=== PATIENT | female | born 2000 | race African-American/Black ===

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

== ENCOUNTER 2021-11-28 21:22 | Emergency (ER) | payer BC ==
--- OUTSIDE RECORDS SUMMARY | 2021-11-28 21:32 | XMS REPORT | Continuity of Care Document ---
:2000 Author Organization [facility] t Address [address] [place] [address] Support Name Relationship Address Phone CLAYTON CARRASQUILLO, MATTHEW Emergency Provider [address] [place] [address] PHYSICIAN, NO Primary Care Physician Unavailable Unavailab PEPE [place] [address] [place] [address] BRADLY CARRASQUILLO, VALERIA Emergency Provider [address] [place] [address] PEPE ECHEVARRIA Next of Kin [address] [place] [address] TANYA CARRASQUILLO, SEVERO Araujo Emergency Provider [address] [facility] [id number] [phone] [place] [address] JUNIOR CARRASQUILLO, GAVIN Emergency Provider [address] [facility] [phone] [place] [address] PEPE ECHEVARRIA Next of Kin [address] [place] [address] CYNTHIA CARRASQUILLO, EMIR Emergency Provider [address] [phone] [place] [address] DAVID REYES Emergency Provider [address] [phone] [place] [address] MD ALISON HELMS MD Emergency Provider [address] [place] [address] PEPE ECHEVARRIA Next of Kin [address] [phone] [place] [address] PEPE ECHEVARRIA Family Member [address] [place] [address] MD ORI FUCHS Emergency Provider Unavailable Unavailable MD VALERIA ABDULLAHI Emergency Provider [address] [place] [address] DO LORENA WARD Emergency Provider [address] [facility] [email or web address] [address] LAWRENCE KABA MD [place] Emergency Provider [address] [email or web address] [address] MD ALEC MICHAEL Admitting Provider [address] [place] [address] MD REGINA YARBROUGH Emergency Provider [address] [place] [address] MD MYLES FORD Emergency Provider [address] [phone] [place] [address] MD NICOLE [facility] Primary Care Physician [address] [facility] [place] [address] BRENNAJOYCE HAMPTONLEROY Vera Unavailable Yumi Echevarria Mother [address] [phone] [place] [address] Airam, Thanh Significant Other [address] [phone] [place] [address] Care Team Providers Name Role Phone Elizabeth Izaguirre Primary Care Physician LANG YOUNGBLOOD Attending Clinician Unavailable Elizabeth Izaguirre Attending Clinician Nurse, [facility] Attending Clinician Unavailable Shaina Owen RN Attending Clinician Unavailable Only, Alex To Test Attending Clinician Unavailable Gretchen Mcgrath MD Attending Clinician GRETCHEN MCGRATH Attending Clinician Unavailable Daysi Mancera RN Attending Clinician Unavailable Unknown, Attending Attending Clinician Unavailable JAC CARDOSO Attending Clinician Unavailable Jac Herrmann Attending Clinician Doctor Unassigned, [place] Attending Clinician Unavailable Lilli Sandoval MD Attending Clinician Fredi Attending Clinician Unavailable BYRON Attending Clinician Unavailable Jeffrey_Gavin Attending Clinician Unavailable PARVIN Attending Clinician Unavailable RENETTA Attending Clinician Unavailable Nicole_Nacho Admitting Clinician Unavailable BYRON Admitting Clinician Unavailable G_Gavin Admitting Clinician Unavailable JUWAN_Marnie Admitting Clinician Unavailable RENETTA Admitting Clinician Unavailable Payers Payer Name Policy Type Policy Number Effective Date Expiration Date S gladis PARRA BCBS BLUE [id number] 2021 ADVANTAGE H[place] 00:00:00 [place] [id number] 2020 2021 [place]VANTAGE (HMO) 00:00:00 00:00:[place] [id number] Problems Condition Condition Condition Status Onset Resolution Last Treating Co mments Source Name Details Category Date Date Treatment Clinician Date Neck Neck Disease Active Univers swelling swelling 6-03 ity of 00:00: [place] 00 Medical Branch Lymphadeno Lymphadeno Disease Active U nivers margaret of margaret of 6-03 ity of head and head and 00:00: [place] neck neck 00 Medical Branch Elevated Elevated Disease Active Unive rs liver liver 6-03 ity of enzymes enzymes 00:00: [place] 00 Medical Branch Anaphylact Anaphylact Disease Active U nivers ic ic 5-18 ity of reaction reaction 00:00: [place] due to due to 00 Medical food food Branch HSV HSV Disease Active Overview: Univer s (herpes (herpes 5-17 Formattin ity o f simplex simplex 00:00: g of this [place] virus) virus) 00 note Medical infection infection might be Br anch different from the original. Positive lab results hsv 1, 02/2021 see scanned records Cervical Cervical Disease Active Overview: Un jackson Papanicola Papanicola 5-17 Formattin ity of ou smear ou smear 00:00: g of this Parviz as negative negative 00 note Medica l within within might be Branch last 12 last 12 different months months from the original. NIL pap 02/2021 see scanned records Other Other Disease Active Univers general general 5-09 ity of counseling [place] and advice and advice 00 Me dical for for Branch contracept contracept lani lani management management Obesity Obesity Disease Active Univers (BMI (BMI - ity of 30-39.9) 30-39.9) 00:00: [address] Branch Generalize Generalize Problem Active [place] anxiety d Anxiety 4-20 da disorder Disorder 00:00: Medica l 00 Group Cyst of Cyst of Problem Active [place] right Right 4-20 da Bartholin' Bartholin' 00:00: Me dical s gland s [place] 00 Group duct Duct Uses Uses Disease Active [facility] contact contact 12-13 ity of lenses lenses 00:00: Medical Branch Acne Acne Disease Active Univers 11-25 ity of 00:00: Medical Branch Decreased Decreased Disease Active Uni vers vision vision 11-25 ity of 00:00: Medical [place] Migraines Migraines Disease Active Uni vers 11-17 ity of 00:00: [facility] Allergies, Adverse Reactions, Alerts Allergy Allergy Status Severity Reaction(s) Onset Inactive Treating Comm ents Source Name Type Date Date Clinician NO KNOWN Drug Active [facility] ALLERGIE Class ity of S [facility] Social History Social Habit Start Date Stop Date Quantity Comments Source Exposure to 2021-11-07 2021-11-17 Yes [facility] SARS-CoV-2 00:00:00 12:44:00 [facility] (event) [place] Alcohol intake 2021-11-17 2021-11-17 Ex-drinker [facility] 00:00:00 00:00:00 (finding) [facility] Tobacco use and 2021-11-07 2021-11-07 Smokeless tobacco Un iversity of exposure 00:00:00 00:00:00 non-user [facility] Tobacco Comment 2021-11-07 2021-11-07 na Universit y of 00:00:00 00:00:00 [facility] Sex Assigned At [birth year] Universit y of 00:00:00 00:00:00 [facility] Smoking Status Start Date Stop Date Source Never smoked tobacco [facility] Medications Ordered Filled Start Stop Current Ordering Indication Dosage Frequency Signature Comments Components Source Medication Medication Date Date Medication? Clinician (SIG) Name Name fluconazole 2021- Yes [id number] 150mg Take 1 Univers (DIFLUCAN) 11-17 tablet by ity of 150 mg 00:00: 04:59 mouth [place] tablet 00 :00 every 72 Medical (seventy-t Branch wo) hours for 3 doses. fluconazole 2021- Yes [id number] 150mg Take 1 Univers (DIFLUCAN) 11-17 tablet by ity of 150 mg 00:00: 04:59 mouth [place] tablet 00 :00 every 72 Medical ([facility] Branch wo) hours for 3 doses. fluconazole 2021- Yes [id number] 150mg Take 1 Univers (DIFLUCAN) 11-17 tablet by ity of 150 mg 00:00: 04:59 mouth [place] tablet 00 :00 [facility] 72 [facility] for 3 doses. fluconazole 2021- Yes [id number] 150mg Take 1 Univers (DIFLUCAN) 11-17 tablet by ity of 150 mg 00:00: 04:59 mouth [place] tablet 00 :00 every 72 [facility] for 3 doses. fluconazole 2021- Yes [id number] 150mg Take 1 Univers (DIFLUCAN) 11-17 tablet by ity of 150 mg 00:00: 04:59 mouth [place] tablet 00 :00 every 72 [facility] hours for 3 doses. metroNIDAZO Yes [id number] 500mg Take 1 Univers LE (FLAGYL) 7-24 tablet by ity of 500 mg 00:00: mouth [place] tablet 00 every 12 Medical (twelve) Branch hours. metroNIDAZO Yes [id number] 500mg Take 1 Univers LE (FLAGYL) 7-24 tablet by ity of 500 mg 00:00: mouth [place] tablet 00 every 12 Medical (twelve) Branch hours. metroNIDAZO 0 Yes [id number] 500mg Take 1 Univers LE (FLAGYL) 7-24 tablet by ity of 500 mg 00:00: mouth [place] tablet 00 every 12 Medical (twelve) Branch hours. metroNIDAZO Yes [id number] 500mg Take 1 Univers LE (FLAGYL) 7-24 tablet by ity of 500 mg 00:00: mouth [place] tablet 00 every 12 Medical (twelve) Branch hours. metroNIDAZO Yes [id number] 500mg Take 1 Univers LE (FLAGYL) 7-24 tablet by ity of 500 mg 00:00: mouth [place] tablet 00 every 12 Medical (twelve) Branch hours. metroNIDAZO Yes [id number] 500mg Take 1 Univers LE (FLAGYL) 7-24 tablet by ity of 500 mg 00:00: mouth [place] tablet 00 every 12 Medical (twelve) Branch hours. metroNIDAZO Yes [id number] 500mg Take 1 Univers LE (FLAGYL) 7-24 tablet by ity of 500 mg 00:00: mouth [place] tablet 00 every 12 Medical (twelve) Branch hours. metroNIDAZO Yes [id number] 500mg Take 1 Univers LE (FLAGYL) 7-24 tablet by ity of 500 mg 00:00: mouth [place] tablet 00 every 12 Medical (twelve) Branch hours. metroNIDAZO 2021- Yes [id number] 500mg Take 1 Univers LE (FLAGYL) 7-23 07-31 tablet by it y of 500 mg 00:00: 04:59 mouth [place] tablet 00 :00 every 12 Medical (twelve) Branch hours for 7 days. metroNIDAZO 2021- Yes [id number] 500mg Take 1 Univers LE (FLAGYL) 7-23 07-31 tablet by it y of 500 mg 00:00: 04:59 mouth [place] tablet 00 :00 every 12 Medical (twelve) Branch hours for 7 days. metroNIDAZO 2021- No [id number] 500mg Take 1 Univers LE (FLAGYL) 7-23 07-24 tablet by it y of 500 mg 00:00: 00:00 mouth [place] tablet 00 :00 every 12 Medical (twelve) Branch hours for 7 days. ibuprofen Yes ibuprofen Uni vers 800 mg 7-22 800 mg ity of tablet 11:04: tablet [address] ibuprofen Yes ibuprofen Uni vers 800 mg 7-22 800 mg ity of tablet 11:04: tablet [address] ibuprofen Yes ibuprofen Uni vers 800 mg 7-22 800 mg ity of tablet 11:04: tablet [address] ibuprofen 2022-0 Yes ibuprofen Uni vers 800 mg 7-22 800 mg ity of tablet 11:04: tablet [address] ibuprofen 2021-0 Yes ibuprofen Uni vers 800 mg 7-22 800 mg ity of tablet 11:04: tablet [address] ibuprofen 2021-0 Yes ibuprofen Uni vers 800 mg 7-22 800 mg ity of tablet 11:04: tablet [address] ibuprofen 2021-0 Yes ibuprofen Uni vers 800 mg 7-22 800 mg ity of tablet 11:04: tablet [address] ibuprofen 2021-0 Yes ibuprofen Uni vers 800 mg 7-22 800 mg ity of tablet 11:04: tablet [address] ibuprofen 2021-0 Yes ibuprofen Uni vers 800 mg 7-22 800 mg ity of tablet 11:04: tablet [address] ibuprofen 2021-0 Yes ibuprofen Uni vers 800 mg 7-22 800 mg ity of tablet 11:04: tablet [address] fluconazole 2021-0 202- Yes [id number] 150mg Take 1 Univers (DIFLUCAN) 7- 07-23 tablet by ity of 150 mg 00:00: 04:59 [place] tablet 00 :00 now for 1 Medical dose. Branch famotidine 2-0 Yes 20mg Take 20 mg U nivers 20 mg 6-20 by mouth 2 ity of tablet 16:03: (two) [place] 08 times Medical daily. Branch famotidine 2022-0 Yes 20mg Take 20 mg U nivers 20 mg 6-20 by mouth 2 ity of tablet 16:03: (two) [place] 08 times Medical daily. Branch famotidine 2022-0 Yes 20mg Take 20 mg U nivers 20 mg 6-20 by mouth 2 ity of tablet 16:03: (two) [place] 08 times Medical daily. Branch famotidine 2022-0 Yes 20mg Take 20 mg U nivers 20 mg 6-20 by mouth 2 ity of tablet 16:03: (two) [place] 08 times Medical daily. Branch famotidine 2022-0 Yes 20mg Take 20 mg U nivers 20 mg 6-20 by mouth 2 ity of tablet 16:03: (two) [place] 08 times Medical daily. Branch famotidine 2022-0 Yes 20mg Take 20 mg U nivers 20 mg 6-20 by mouth 2 ity of tablet 16:03: (two) [place] 08 times Medical daily. Branch famotidine 2022-0 Yes 20mg Take 20 mg U nivers 20 mg 6-20 by mouth 2 ity of tablet 16:03: (two) [place] 08 times Medical daily. Branch famotidine 2022-0 Yes 20mg Take 20 mg U nivers 20 mg 6-20 by mouth 2 ity of tablet 16:03: (two) [place] 08 times Medical daily. Branch famotidine 2022-0 Yes 20mg Take 20 mg U nivers 20 mg 6-20 by mouth 2 ity of tablet 16:03: (two) [place] 08 times Medical daily. Branch famotidine 2022-0 Yes 20mg Take 20 mg U nivers 20 mg 6-20 by mouth 2 ity of tablet 16:03: (two) [place] 08 times Medical daily. Branch famotidine 2022-0 Yes 20mg Take 20 mg U nivers 20 mg 6-20 by mouth 2 ity of tablet 16:03: (two) [place] 08 times Medical daily. Branch famotidine 2022-0 Yes 20mg Take 20 mg U nivers 20 mg 6-20 by mouth 2 ity of tablet 16:03: (two) [place] 08 times Medical daily. Branch famotidine 2022-0 Yes 20mg Take 20 mg U nivers 20 mg 6-20 by mouth 2 ity of tablet 16:03: (two) [place] 08 times Medical daily. Branch ibuprofen 2-0 Yes ibuprofen Uni vers 800 mg 6-03 800 mg ity of tablet 13:29: tablet [place] 15 Medical Branch ibuprofen 2-0 Yes ibuprofen Uni vers 800 mg 6-03 800 mg ity of tablet 13:29: tablet [place] 15 Medical Branch ibuprofen 2022-0 Yes ibuprofen Uni vers 800 mg 6-03 800 mg ity of tablet 13:29: tablet [place] 15 Medical Branch EPINEPHrine 2021-0 Yes USE Univ ers 0.3 mg/0.3 6-03 DIRECTED ity o f mL 00:00: ONCE FOR 1 [place] injection 00 DOSE WHEN Medic al HAVING Branch ANAPHYLAXI S REACTION EPINEPHrine 2021-0 Yes USE Univ ers 0.3 mg/0.3 09-19 DIRECTED ity o f mL 00:00: ONCE FOR 1 [place] injection 00 DOSE WHEN Medic al HAVING Branch ANAPHYLAXI S REACTION EPINEPHrine 2021-0 Yes USE Univ ers 0.3 mg/0.3 6-03 DIRECTED ity o f mL 00:00: ONCE FOR 1 [place] injection 00 DOSE WHEN Medic al HAVING Branch ANAPHYLAXI S REACTION EPINEPHrine 2022-0 Yes USE Univ ers 0.3 mg/0.3 6-03 DIRECTED ity o f mL 00:00: ONCE FOR 1 [place] injection 00 DOSE WHEN Medic al HAVING Branch ANAPHYLAXI S REACTION EPINEPHrine 2022-0 Yes USE Univ ers 0.3 mg/0.3 6-03 DIRECTED ity o f mL 00:00: ONCE FOR 1 [place] injection 00 DOSE WHEN Medic al HAVING Branch ANAPHYLAXI S REACTION EPINEPHrine 2022-0 Yes USE Univ ers 0.3 mg/0.3 6-03 DIRECTED ity o f mL 00:00: ONCE FOR 1 [place] injection 00 DOSE WHEN Medic al HAVING Branch ANAPHYLAXI S REACTION EPINEPHrine 2022-0 Yes USE Univ ers 0.3 mg/0.3 6-03 DIRECTED ity o f mL 00:00: ONCE FOR 1 [place] injection 00 DOSE WHEN Medic al HAVING Branch ANAPHYLAXI S REACTION EPINEPHrine 2022-0 Yes USE Univ ers 0.3 mg/0.3 6-03 DIRECTED ity o f mL 00:00: ONCE FOR 1 [place] injection 00 DOSE WHEN Medic al HAVING Branch ANAPHYLAXI S REACTION EPINEPHrine 2022-0 Yes USE Univ ers 0.3 mg/0.3 6-03 DIRECTED ity o f mL 00:00: ONCE FOR 1 [place] injection 00 DOSE WHEN Medic al HAVING Branch ANAPHYLAXI S REACTION EPINEPHrine 2022-0 Yes USE Univ ers 0.3 mg/0.3 6-03 DIRECTED ity o f mL 00:00: ONCE FOR 1 [place] injection 00 DOSE WHEN Medic al HAVING Branch ANAPHYLAXI S REACTION EPINEPHrine 2022-0 Yes USE Univ ers 0.3 mg/0.3 6-03 DIRECTED ity o f mL 00:00: ONCE FOR 1 [place] injection 00 DOSE WHEN Medic al HAVING Branch ANAPHYLAXI S REACTION EPINEPHrine 2022-0 Yes USE Univ ers 0.3 mg/0.3 6-03 DIRECTED ity o f mL 00:00: ONCE FOR 1 [place] injection 00 DOSE WHEN Medic al HAVING Branch ANAPHYLAXI S REACTION EPINEPHrine 2022-0 Yes USE Univ ers 0.3 mg/0.3 6-03 DIRECTED ity o f mL 00:00: ONCE FOR 1 [place] injection 00 DOSE WHEN Medic al HAVING Branch ANAPHYLAXI S REACTION cetirizine 2022-0 Yes [id number] 20mg Take 2 Univers 10 mg 5-18 tablets by ity of tablet 00:00: mouth [address] [place] [address] (two) Medical times Branch daily. cetirizine 2022-0 Yes [id number] 20mg Take 2 Univers 10 mg 5-18 tablets by ity of tablet 00:00: mouth [address] [place] [address] (two) Medical times Branch daily. cetirizine 2022-0 Yes [id number] 20mg Take 2 Univers 10 mg 5-18 tablets by ity of tablet 00:00: mouth [address] [place] [address] ([facility]) Medical times Branch daily. cetirizine 2022-0 Yes [id number] 20mg Take 2 Univers 10 mg 5-18 tablets by ity of tablet 00:00: mouth [address] [place] [address] ([facility]) Medical times Branch daily. cetirizine 2-0 Yes [id number] 20mg Take 2 Univers 10 mg 5-18 tablets by ity of tablet 00:00: mouth [address] [place] [address] ([facility]) Medical times Branch daily. cetirizine 2-0 Yes [id number] 20mg Take 2 Univers 10 mg 5-18 tablets by ity of tablet 00:00: mouth [address] [place] [address] ([facility]) Medical times Branch daily. cetirizine 2022-0 Yes [id number] 20mg Take 2 Univers 10 mg 5-18 tablets by ity of tablet 00:00: mouth [address] [place] [address] ([facility]) Medical times Branch daily. cetirizine 2022-0 Yes [id number] 20mg Take 2 Univers 10 mg 5-18 tablets by ity of tablet 00:00: mouth [address] [place] [address] ([facility]) Medical times Branch daily. cetirizine 2022-0 Yes [id number] 20mg Take 2 Univers 10 mg 5-18 tablets by ity of tablet 00:00: mouth [address] [place] [address] ([facility]) Medical times Branch daily. cetirizine 2022-0 Yes [id number] 20mg Take 2 Univers 10 mg 5-18 tablets by ity of tablet 00:00: mouth [address] [place] [address] ([facility]) Medical times Branch daily. cetirizine 2022-0 Yes [id number] 20mg Take 2 Univers 10 mg 5-18 tablets by ity of tablet 00:00: mouth [address] [place] [address] ([facility]) Medical times Branch daily. cetirizine 2021-0 Yes [id number] 20mg Take 2 Univers 10 mg 5-18 tablets by ity of tablet 00:00: mouth [address] [place] [address] ([facility]) Medical times Branch daily. cetirizine 2021-0 Yes [id number] 20mg Take 2 Univers 10 mg 5-18 tablets by ity of tablet 00:00: mouth [address] [place] [address] ([facility]) Medical times Branch daily. cetirizine 2021-0 Yes [id number] 20mg Take 2 Univers 10 mg 5-18 tablets by ity of tablet 00:00: mouth [address] [place] [address] (two) Medical times Branch daily. Monistat 7 Monistat 7 No 1applic Q1D Monistat 7 [place] 2 % vaginal 2 % vaginal ator(s) 2 % da cream cream ful vaginal Medical Insert 1 Insert 1 cream Group applicatorf applicatorf Insert 1 ul every ul every applicator day by day by ful every vaginal vaginal day by route for 7 route for 7 vaginal days. days. route for 7 days. folic acid folic acid No folic acid [place] 1 mg tablet 1 mg tablet 1 mg d a [facility] ibuprofen ibuprofen No ibuprofen [place] 600 mg 600 mg 600 mg da tablet tablet tablet [facility] ibuprofen ibuprofen No ibuprofen [place] 800 mg 800 mg 800 mg da tablet tablet tablet [facility] Program metoclopram metoclopram No metoclopra [place] osmany 5 mg osmany 5 mg mide 5 mg da tablet tablet [facility] naproxen naproxen No naproxen [place] 375 mg 375 mg 375 mg da tablet tablet tablet [facility] Program nitrofurant nitrofurant No nitrofuran [place] oin oin toin da monohydrate monohydrate monohydrat [facility] /macrocryst /macrocryst e/macrocry al als 100 mg als 100 mg stals 100 Health capsule capsule mg capsule Out reac h Program ondansetron ondansetron No ondansetro [place] 4 mg 4 mg n 4 mg da disintegrat disintegrat disintegra [facility] ing tablet ing tablet ting al DIS ONE T DIS ONE T tablet DIS Health PO Q 6 H PO Q 6 H ONE T PO Q O utreac PRN N PRN N 6 H PRN N h Program ondansetron ondansetron No ondansetro [place] HCl 4 mg HCl 4 mg n HCl 4 mg d a tablet tablet tablet [facility] Outre [facility] Program oseltamivir oseltamivir No oseltamivi [place] 75 mg 75 mg r 75 mg da capsule capsule capsule [facility] Outre h Program pantoprazol pantoprazol No pantoprazo [place] e 40 mg e 40 mg le 40 mg da tablet,norbert tablet,norbert tablet,del [facility] yed release yed release ayed a l TAKE 1 TAKE 1 release Health TABLET BY TABLET BY TAKE 1 Out reac MOUTH EVERY MOUTH EVERY TABLET BY h DAY FOR DAY FOR MOUTH Program HEARTBURN HEARTBURN EVERY DAY FOR HEARTBURN Prenatabs Prenatabs No Prenatabs [place] Rx 29 mg Rx 29 mg Rx 29 mg da iron-1 mg iron-1 mg iron-1 mg [facility] tablet tablet tablet [facility] Outre h Program promethazin promethazin No promethazi [place] e 25 mg e 25 mg ne 25 mg da tablet tablet tablet [facility] Outre [facility] Program tobramycin tobramycin No tobramycin [place] 0.3 % eye 0.3 % eye 0.3 % eye da drops drops drops [facility] Outre h Program tramadol tramadol No tramadol [place] 37.5 37.5 37.5 da mg-acetamin mg-acetamin mg-acetami [facility] ophen 325 ophen 325 nophen 325 al mg tablet mg tablet mg tablet [facility] Outre h Program Tubersol 5 Tubersol 5 No .1mL Q1D Tubersol 5 [place] tub. tub. tub. da unit/0.1 mL unit/0.1 mL unit/0.1 [facility] intradermal intradermal mL a l injection injection intraderma Health solution solution l Outreac Inject 0.1 Inject 0.1 injection h mL every mL every solution Pro gram day by day by Inject 0.1 intradermal intradermal mL every route as route as day by directed. directed. intraderma l route as directed. Bactrim DS Bactrim DS No 1 Q12H Bactrim DS [place] 800 mg-160 800 mg-160 800 mg-160 da mg tablet mg tablet mg tablet [facility] Take 1 Take 1 Take 1 al tablet tablet tablet Health every 12 every 12 every 12 Out reac hours by hours by hours by h oral route oral route oral route Program for 7 days. for 7 days. for 7 days. Flagyl 500 Flagyl 500 No 1 Q12H Flagyl 500 [place] mg tablet mg tablet mg tablet da Take 1 Take 1 Take 1 [facility] tablet tablet tablet al every 12 every 12 every 12 Hea lth hours by hours by hours by Out reac oral route oral route oral route h for 7 days. for 7 days. for 7 Program days. fluconazole fluconazole No fluconazol [place] 150 mg 150 mg e 150 mg da tablet TAKE tablet TAKE tablet [facility] 1 TABLET BY 1 TABLET BY TAKE 1 al MOUTH NOW MOUTH NOW TABLET BY Health MOUTH NOW Outreac h Program fluticasone fluticasone No fluticason [place] propionate propionate e da 50 50 propionate [facility] mcg/actuati mcg/actuati 50 a l on nasal on nasal mcg/actuat H ealth spray,suspe spray,suspe ion nasal Outreac nsion nsion spray,susp h ension Program Immunizations Ordered Immunization Filled Immunization Date Status Commen ts Source Name Name meningococcal MCV4P meningococcal MCV4P 2017-12-31 Completed [place] 11:20:[facility] Meningococcal 2017-12-31 Completed University of Polysaccharide 00:00:00 [facility] felipe (groups A, C, Y and Branc h W-135) conjugate vaccine (MCV4P) Meningococcal 2017-12-31 Completed University of Polysaccharide 00:00:00 [facility] felipe (groups A, C, Y and Branc h W-135) conjugate vaccine (MCV4P) Meningococcal 2017-12-31 Completed University of Polysaccharide 00:00:00 [facility] felipe (groups A, C, Y and Branc h W-135) conjugate vaccine (MCV4P) Meningococcal 2017-12-31 Completed University of Polysaccharide 00:00:00 [facility] felipe (groups A, C, Y and Branc h W-135) conjugate vaccine (MCV4P) Meningococcal 2017-12-31 Completed University of Polysaccharide 00:00:00 [facility] felipe (groups A, C, Y and Branc h W-135) conjugate vaccine (MCV4P) Meningococcal 2017-12-31 Completed University of Polysaccharide 00:00:00 [place] Medi felipe (groups A, C, Y and Branc h W-135) conjugate vaccine (MCV4P) Meningococcal 2017-12-31 Completed University of Polysaccharide 00:00:00 [place] Medi felipe (groups A, C, Y and Branc h W-135) conjugate vaccine (MCV4P) Meningococcal 2017-12-31 Completed University of Polysaccharide 00:00:00 [place] Medi felipe (groups A, C, Y and Branc h W-135) conjugate vaccine (MCV4P) Meningococcal 2017-12-31 Completed University of Polysaccharide 00:00:00 [place] Medi felipe (groups A, C, Y and Branc h W-135) conjugate vaccine (MCV4P) Meningococcal 2017-12-31 Completed University of Polysaccharide 00:00:00 [place] Medi felipe (groups A, C, Y and Branc h W-135) conjugate vaccine (MCV4P) Meningococcal 2017-12-31 Completed [facility] Pol[facility] 00:00:00 [facility] (groups A, C, Y and Branc h W-135) conjugate vaccine (MCV4P) Meningococcal 2017-12-31 Completed [facility] Polysaccharide 00:00:00 [facility] (groups A, C, Y and Branc h W-135) conjugate vaccine (MCV4P) Meningococcal 2017-12-31 Completed [facility] Polysaccharide 00:00:00 [facility] (groups A, C, Y and Branc h W-135) conjugate vaccine (MCV4P) Meningococcal 2017-12-31 Completed [facility] Polysaccharide 00:00:00 [facility] (groups A, C, Y and Branc h W-135) conjugate vaccine (MCV4P) HPV 2014-08-28 Completed [facility] 00:00:00 [facility] HPV 2014-08-28 Completed [facility] 00:00:00 [facility] HPV 2014-08-28 Completed [facility] 00:00:00 [facility] HPV 2014-08-28 Completed [facility] 00:00:00 [facility] HPV 2014-08-28 Completed [facility] 00:00:00 [facility] HPV 2014-08-28 Completed [facility] 00:00:00 [facility] HPV 2014-08-28 Completed [facility] 00:00:00 [facility] HPV 2014-08-28 Completed [facility] 00:00:00 [facility] HPV 2014-08-28 Completed [facility] 00:00:00 [facility] HPV 2014-08-28 Completed [facility] 00:00:00 [facility] HPV 2014-08-28 Completed [facility] 00:00:00 [facility] HPV 2014-08-28 Completed [facility] 00:00:00 [facility] HPV 2014-08-28 Completed [facility] 00:00:00 [facility] HPV 2014-08-28 Completed [facility] 00:00:00 [facility] HPV 2013-11-17 Completed [facility] 00:00:00 [facility] HPV 2013-11-17 Completed [facility] 00:00:00 [facility] HPV 2013-11-17 Completed [facility] 00:00:00 [facility] HPV 2013-11-17 Completed [facility] 00:00:00 [facility] HPV 2013-11-17 Completed [facility] 00:00:00 [facility] HPV 2013-11-17 Completed [facility] 00:00:00 [facility] HPV 2013-11-17 Completed [facility] 00:00:00 [facility] HPV 2013-11-17 Completed [facility] 00:00:00 [facility] HPV 2013-11-17 Completed [facility] 00:00:00 [facility] HPV 2013-11-17 Completed [facility] 00:00:00 [facility] HPV 2013-11-17 Completed [facility] 00:00:00 [facility] HPV 2013-11-17 Completed [facility] 00:00:00 [facility] HPV 2013-11-17 Completed [facility] 00:00:00 [facility] HPV 2013-11-17 Completed [facility] 00:00:00 [facility] HPV 2013-02-01 Completed [facility] 00:00:00 [facility] HPV 2013-02-01 Completed [facility] 00:00:00 [facility] HPV 2013-02-01 Completed [facility] 00:00:00 [facility] HPV 2013-02-01 Completed [facility] 00:00:00 [facility] HPV 2013-02-01 Completed [facility] 00:00:00 [facility] HPV 2013-02-01 Completed [facility] 00:00:00 [facility] HPV 2013-02-01 Completed [facility] 00:00:00 [facility] HPV 2013-02-01 Completed [facility] 00:00:00 [facility] HPV 2013-02-01 Completed [facility] 00:00:00 [facility] HPV 2013-02-01 Completed [facility] 00:00:00 [facility] HPV 2013-02-01 Completed [facility] 00:00:00 [facility] HPV 2013-02-01 Completed [facility] 00:00:00 [facility] HPV 2013-02-01 Completed [facility] 00:00:00 [facility] HPV 2013-02-01 Completed [facility] 00:00:00 [facility] Meningococcal 2011-08-26 Completed [facility] Oligosaccharide 00:00:00 [place] [facility] (groups A, C, Y and Branc h W-135) conjugate vaccine (MCV4O) TDAP 2011-08-26 Completed [facility] 00:00:00 [facility] Varicella 2011-08-26 Completed [facility] (varivax)(chicken 00:00:00 [facility] pox) [facility] Meningococcal 2011-08-26 Completed [facility] Oligosaccharide 00:00:00 [facility] (groups A, C, Y and Branc h W-135) conjugate vaccine (MCV4O) TDAP 2011-08-26 Completed [facility] 00:00:00 [facility] Varicella 2011-08-26 Completed [facility] (varivax)(chicken 00:00:00 [facility] pox) [facility] Meningococcal 2011-08-26 Completed [facility] Oligosaccharide 00:00:00 [facility] (groups A, C, Y and Branc h W-135) conjugate vaccine (MCV4O) TDAP 2011-08-26 Completed [facility] 00:00:00 [facility] Varicella 2011-08-26 Completed [facility] (varivax)(chicken 00:00:00 [facility] pox) [facility] Meningococcal 2011-08-26 Completed [facility] Oligosaccharide 00:00:00 [facility] (groups A, C, Y and Branc h W-135) conjugate vaccine (MCV4O) TDAP 2011-08-26 Completed [facility] 00:00:00 [facility] Varicella 2011-08-26 Completed [facility] (varivax)(chicken 00:00:00 [facility] pox) [facility] Meningococcal 2011-08-26 Completed [facility] Oligosaccharide 00:00:00 [facility] (groups A, C, Y and Branc h W-135) conjugate vaccine (MCV4O) TDAP 2011-08-26 Completed [facility] 00:00:00 [facility] Varicella 2011-08-26 Completed [facility] (varivax)(chicken 00:00:00 [facility] pox) [facility] Meningococcal 2011-08-26 Completed [facility] Oligosaccharide 00:00:00 [facility] (groups A, C, Y and Branc h W-135) conjugate vaccine (MCV4O) TDAP 2011-08-26 Completed [facility] 00:00:00 [facility] Varicella 2011-08-26 Completed [facility] (varivax)(chicken 00:00:00 [facility] pox) [facility] Meningococcal 2011-08-26 Completed [facility] Oligosaccharide 00:00:00 [facility] (groups A, C, Y and Branc h W-135) conjugate vaccine (MCV4O) TDAP 2011-08-26 Completed [facility] 00:00:00 [facility] Varicella 2011-08-26 Completed [facility] (varivax)(chicken 00:00:00 [facility] pox) [facility] Meningococcal 2011-08-26 Completed [facility] Oligosaccharide 00:00:00 [facility] (groups A, C, Y and Branc h W-135) conjugate vaccine (MCV4O) TDAP 2011-08-26 Completed [facility] 00:00:00 [facility] Varicella 2011-08-26 Completed [facility] (varivax)(chicken 00:00:00 [place] [facility] pox) [facility] Meningococcal 2011-08-26 Completed [facility] Oligosaccharide 00:00:00 [facility] (groups A, C, Y and Branc h W-135) conjugate vaccine (MCV4O) TDAP 2011-08-26 Completed [facility] 00:00:00 [facility] Varicella 2011-08-26 Completed [facility] (varivax)(chicken 00:00:00 [facility] pox) [facility] Meningococcal 2011-08-26 Completed [facility] Oligosaccharide 00:00:00 [facility] (groups A, C, Y and Branc h W-135) conjugate vaccine (MCV4O) TDAP 2011-08-26 Completed [facility] 00:00:00 [facility] Varicella 2011-08-26 Completed [facility] (varivax)(chicken 00:00:00 [place] [facility] pox[facility] Meningococcal 2011-08-26 Completed [facility] Oligosaccharide 00:00:00 [facility] (groups A, C, Y and Branc h W-135) conjugate vaccine (MCV4O) TDAP 2011-08-26 Completed [facility] 00:00:00 [facility] Varicella 2011-08-26 Completed [facility] (varivax)(chicken 00:00:00 [place] [facility] pox) [facility] Meningococcal 2011-08-26 Completed [facility] Oligosaccharide 00:00:00 [facility] (groups A, C, Y and Branc h W-135) conjugate vaccine (MCV4O) TDAP 2011-08-26 Completed [facility] 00:00:00 [facility] Varicella 2011-08-26 Completed [facility] (varivax)(chicken 00:00:00 [place] [facility] pox) [facility] Meningococcal 2011-08-26 Completed [facility] Oligosaccharide 00:00:00 [facility] (groups A, C, Y and Branc h W-135) conjugate vaccine (MCV4O) TDAP 2011-08-26 Completed [facility] 00:00:00 [facility] Varicella 2011-08-26 Completed [facility] (varivax)(chicken 00:00:00 [facility] pox) [facility] Meningococcal 2011-08-26 Completed [facility] Oligosaccharide 00:00:00 [facility] (groups A, C, Y and Branc h W-135) conjugate vaccine (MCV4O) TDAP 2011-08-26 Completed [facility] 00:00:00 [facility] Varicella 2011-08-26 Completed [facility] (varivax)(chicken 00:00:00 [place] [facility]ox[facility] HEPATITIS A 2005-01-15 Completed [facility] 00:00:00 [facility] HEPATITIS A 2005-01-15 Completed [facility] 00:00:00 [facility] HEPATITIS A 2005-01-15 Completed [facility] 00:00:00 [facility] HEPATITIS A 2005-01-15 Completed [facility] 00:00:00 [facility] HEPATITIS A 2005-01-15 Completed [facility] 00:00:00 [facility] HEPATITIS A 2005-01-15 Completed [facility] 00:00:00 [facility] HEPATITIS A 2005-01-15 Completed [facility] 00:00:00 [facility] HEPATITIS A 2005-01-15 Completed [facility] 00:00:00 [facility] HEPATITIS A 2005-01-15 Completed [facility] 00:00:00 [facility] HEPATITIS A 2005-01-15 Completed [facility] 00:00:00 [facility] HEPATITIS A 2005-01-15 Completed [facility] 00:00:00 [facility] HEPATITIS A 2005-01-15 Completed [facility] 00:00:00 [facility] HEPATITIS A 2005-01-15 Completed [facility] 00:00:00 [facility] HEPATITIS A 2005-01-15 Completed [facility] 00:00:00 [facility] DTAP 2004-04-17 Completed [facility] 00:00:00 [facility] Hep B, Adol or Pedi 2004-04-17 Completed Unive rsity of Dosage 00:00:00 [facility] IPV 2004-04-17 Completed [facility] 00:00:00 [facility] MMR 2004-04-17 Completed [facility] 00:00:00 [facility] DTAP 2004-04-17 Completed [facility] 00:00:00 [facility] Hep B, Adol or Pedi 2004-04-17 Completed Unive rsity of Dosage 00:00:00 [facility] IPV 2004-04-17 Completed [facility] 00:00:00 [facility] MMR 2004-04-17 Completed [facility] 00:00:00 [facility] DTAP 2004-04-17 Completed [facility] 00:00:00 [facility] Hep B, Adol or Pedi 2004-04-17 Completed Unive rsity of Dosage 00:00:00 [facility] IPV 2004-04-17 Completed [facility] 00:00:00 [facility] MMR 2004-04-17 Completed [facility] 00:00:00 [facility] DTAP 2004-04-17 Completed [facility] 00:00:00 [facility] Hep B, Adol or Pedi 2004-04-17 Completed Unive rsity of Dosage 00:00:00 [facility] IPV 2004-04-17 Completed [facility] 00:00:00 [facility] MMR 2004-04-17 Completed [facility] 00:00:00 [facility] DTAP 2004-04-17 Completed [facility] 00:00:00 [facility] Hep B, Adol or Pedi 2004-04-17 Completed Unive rsity of Dosage 00:00:00 [facility] IPV 2004-04-17 Completed [facility] 00:00:00 [facility] MMR 2004-04-17 Completed [facility] 00:00:00 [facility] DTAP 2004-04-17 Completed [facility] 00:00:00 [facility] Hep B, Adol or Pedi 2004-04-17 Completed Unive rsity of Dosage 00:00:00 [facility] IPV 2004-04-17 Completed [facility] 00:00:00 [facility] MMR 2004-04-17 Completed [facility] 00:00:00 [facility] DTAP 2004-04-17 Completed [facility] 00:00:00 [facility] Hep B, Adol or Pedi 2004-04-17 Completed Unive rsity of Dosage 00:00:00 [facility] IPV 2004-04-17 Completed [facility] 00:00:00 [facility] MMR 2004-04-17 Completed [facility] 00:00:00 [facility] DTAP 2004-04-17 Completed [facility] 00:00:00 [facility] Hep B, Adol or Pedi 2004-04-17 Completed Unive rsity of Dosage 00:00:00 [facility] IPV 2004-04-17 Completed [facility] 00:00:00 [facility] MMR 2004-04-17 Completed [facility] 00:00:00 [facility] DTAP 2004-04-17 Completed [facility] 00:00:00 [facility] Hep B, Adol or Pedi 2004-04-17 Completed Unive rsity of Dosage 00:00:00 [facility] IPV 2004-04-17 Completed [facility] 00:00:00 [facility] MMR 2004-04-17 Completed [facility] 00:00:00 [facility] DTAP 2004-04-17 Completed [facility] 00:00:00 [facility] Hep B, Adol or Pedi 2004-04-17 Completed Unive rsity of Dosage 00:00:00 [facility] IPV 2004-04-17 Completed [facility] 00:00:00 [facility] MMR 2004-04-17 Completed [facility] 00:00:00 [facility] DTAP 2004-04-17 Completed [facility] 00:00:00 [facility] Hep B, Adol or Pedi 2004-04-17 Completed Unive rsity of Dosage 00:00:00 [facility] IPV 2004-04-17 Completed [facility] 00:00:00 [facility] MMR 2004-04-17 Completed [facility] 00:00:00 [facility] DTAP 2004-04-17 Completed [facility] 00:00:00 [facility] Hep B, Adol or Pedi 2004-04-17 Completed Unive rsity of Dosage 00:00:00 [facility] IPV 2004-04-17 Completed [facility] 00:00:00 [facility] MMR 2004-04-17 Completed [facility] 00:00:00 [facility] DTAP 2004-04-17 Completed [facility] 00:00:00 [facility] Hep B, Adol or Pedi 2004-04-17 Completed Unive rsity of Dosage 00:00:00 [facility] IPV 2004-04-17 Completed [facility] 00:00:00 [facility] MMR 2004-04-17 Completed [facility] 00:00:00 [facility] DTAP 2004-04-17 Completed [facility] 00:00:00 [facility] Hep B, Adol or Pedi 2004-04-17 Completed Unive rsity of Dosage 00:00:00 [facility] IPV 2004-04-17 Completed [facility] 00:00:00 [facility] MMR 2004-04-17 Completed [facility] 00:00:00 [facility] DTAP 2004-01-08 Completed [facility] 00:00:00 [facility] Hep B, Adol or Pedi 2004-01-08 Completed [facility]ive rsity of Dosage 00:00:00 [facility] IPV 2004-01-08 Completed [facility] 00:00:00 [facility] MMR 2004-01-08 Completed [facility] 00:00:00 [facility] Varicella 2004-01-08 Completed [facility] (varivax)(chicken 00:00:00 [facility]ox[facility] DTAP 2004-01-08 Completed [facility] 00:00:00 [facility] Hep B, Adol or Pedi 2004-01-08 Completed Unive rsity of Dosage 00:00:00 [facility] IPV 2004-01-08 Completed [facility] 00:00:00 [facility] MMR 2004-01-08 Completed [facility] 00:00:00 [facility] Varicella 2004-01-08 Completed [facility] (varivax)(chicken 00:00:00 [facility] pox[facility] DTAP 2004-01-08 Completed [facility] 00:00:00 [facility] Hep B, Adol or Pedi 2004-01-08 Completed Unive rsity of Dosage 00:00:00 [facility] IPV 2004-01-08 Completed [facility] 00:00:00 [facility] MMR 2004-01-08 Completed [facility] 00:00:00 [facility] Varicella 2004-01-08 Completed [facility] (varivax)(chicken 00:00:00 [facility] pox) [facility] DTAP 2004-01-08 Completed [facility] 00:00:00 [facility] Hep B, Adol or Pedi 2004-01-08 Completed Unive rsity of Dosage 00:00:00 [facility] IPV 2004-01-08 Completed [facility] 00:00:00 [facility] MMR 2004-01-08 Completed [facility] 00:00:00 [facility] Varicella 2004-01-08 Completed [facility] (varivax)(chicken 00:00:00 [facility] pox) [facility] DTAP 2004-01-08 Completed [facility] 00:00:00 [facility] Hep B, Adol or Pedi 2004-01-08 Completed Unive rsity of Dosage 00:00:00 [facility] IPV 2004-01-08 Completed [facility] 00:00:00 [facility] MMR 2004-01-08 Completed [facility] 00:00:00 [facility] Varicella 2004-01-08 Completed [facility] (varivax)(chicken 00:00:00 [facility] pox) [facility] DTAP 2004-01-08 Completed [facility] 00:00:00 [facility] Hep B, Adol or Pedi 2004-01-08 Completed Unive rsity of Dosage 00:00:00 [facility] IPV 2004-01-08 Completed [facility] 00:00:00 [facility] MMR 2004-01-08 Completed [facility] 00:00:00 [facility] Varicella 2004-01-08 Completed [facility] (varivax)(chicken 00:00:00 [facility] pox) [facility] DTAP 2004-01-08 Completed [facility] 00:00:00 [facility] Hep B, Adol or Pedi 2004-01-08 Completed Unive rsity of Dosage 00:00:00 [facility] IPV 2004-01-08 Completed [facility] 00:00:00 [facility] MMR 2004-01-08 Completed [facility] 00:00:00 [facility] Varicella 2004-01-08 Completed [facility] (varivax)(chicken 00:00:00 [facility] pox) [facility] DTAP 2004-01-08 Completed [facility] 00:00:00 [facility] Hep B, Adol or Pedi 2004-01-08 Completed Unive rsity of Dosage 00:00:00 [facility] IPV 2004-01-08 Completed [facility] 00:00:00 [facility] MMR 2004-01-08 Completed [facility] 00:00:00 [facility] Varicella 2004-01-08 Completed [facility] (varivax)(chicken 00:00:00 [facility] pox) [facility] DTAP 2004-01-08 Completed [facility] 00:00:00 [facility] Hep B, Adol or Pedi 2004-01-08 Completed Unive rsity of Dosage 00:00:00 [facility] IPV 2004-01-08 Completed [facility] 00:00:00 [facility] MMR 2004-01-08 Completed [facility] 00:00:00 [facility] Varicella 2004-01-08 Completed [facility] (varivax)(chicken 00:00:00 [facility] pox) [facility] DTAP 2004-01-08 Completed [facility] 00:00:00 [facility] Hep B, Adol or Pedi 2004-01-08 Completed Unive rsity of Dosage 00:00:00 [facility] IPV 2004-01-08 Completed [facility] 00:00:00 [facility] MMR 2004-01-08 Completed [facility] 00:00:00 [facility] Varicella 2004-01-08 Completed [facility] (varivax)(chicken 00:00:00 [facility] pox) [facility] DTAP 2004-01-08 Completed [facility] 00:00:00 [facility] Hep B, Adol or Pedi 2004-01-08 Completed Unive rsity of Dosage 00:00:00 [facility] IPV 2004-01-08 Completed [facility] 00:00:00 [facility] MMR 2004-01-08 Completed [facility] 00:00:00 [facility] Varicella 2004-01-08 Completed [facility] (varivax)(chicken 00:00:00 [facility] pox) [facility] DTAP 2004-01-08 Completed [facility] 00:00:00 [facility] Hep B, Adol or Pedi 2004-01-08 Completed Unive rsity of Dosage 00:00:00 [facility] IPV 2004-01-08 Completed [facility] 00:00:00 [facility] MMR 2004-01-08 Completed [facility] 00:00:00 [facility] Varicella 2004-01-08 Completed [facility] (varivax)(chicken 00:00:00 [facility] pox) [facility] DTAP 2004-01-08 Completed [facility] 00:00:00 [facility] Hep B, Adol or Pedi 2004-01-08 Completed [facility]ive rsity of Dosage 00:00:00 [facility] IPV 2004-01-08 Completed [facility] 00:00:00 [facility] MMR 2004-01-08 Completed [facility] 00:00:00 [facility] Varicella 2004-01-08 Completed [facility] (varivax)(chicken 00:00:00 [facility] pox) [facility] DTAP 2004-01-08 Completed [facility] 00:00:00 [facility] Hep B, Adol or Pedi 2004-01-08 Completed Unive rsity of Dosage 00:00:00 [facility] IPV 2004-01-08 Completed [facility] 00:00:00 [facility] MMR 2004-01-08 Completed [facility] 00:00:00 [facility] Varicella 2004-01-08 Completed [facility] of (varivax)(chicken 00:00:00 [facility] edical pox) Branch HEPATITIS A 2000-12-14 Completed [facility] 00:00:00 [facility] IPV 2000-12-14 Completed [facility] 00:00:00 [facility] HEPATITIS A 2000-12-14 Completed [facility] 00:00:00 [facility] IPV 2000-12-14 Completed [facility] 00:00:00 [facility] HEPATITIS A 2000-12-14 Completed [facility] 00:00:00 [facility] IPV 2000-12-14 Completed [facility] 00:00:00 [facility] HEPATITIS A 2000-12-14 Completed [facility] 00:00:00 [facility] IPV 2000-12-14 Completed [facility] 00:00:00 [facility] HEPATITIS A 2000-12-14 Completed [facility] 00:00:00 [facility] IPV 2000-12-14 Completed [facility] 00:00:00 [facility] HEPATITIS A 2000-12-14 Completed [facility] 00:00:00 [facility] IPV 2000-12-14 Completed [facility] 00:00:00 [facility] HEPATITIS A 2000-12-14 Completed [facility] 00:00:00 [facility] IPV 2000-12-14 Completed [facility] 00:00:00 [facility] HEPATITIS A 2000-12-14 Completed [facility] 00:00:00 [facility] IPV 2000-12-14 Completed [facility] 00:00:00 [facility] HEPATITIS A 2000-12-14 Completed [facility] 00:00:00 [facility] IPV 2000-12-14 Completed [facility] 00:00:00 [facility] HEPATITIS A 2000-12-14 Completed [facility] 00:00:00 [facility] IPV 2000-12-14 Completed [facility] 00:00:00 [facility] HEPATITIS A 2000-12-14 Completed [facility] 00:00:00 [facility] IPV 2000-12-14 Completed [facility] 00:00:00 [facility] HEPATITIS A 2000-12-14 Completed [facility] 00:00:00 [facility] IPV 2000-12-14 Completed [facility] 00:00:00 [facility] HEPATITIS A 2000-12-14 Completed [facility] 00:00:00 [facility] IPV 2000-12-14 Completed [facility] 00:00:00 [facility] HEPATITIS A 2000-12-14 Completed [facility] 00:00:00 [facility] IPV 2000-12-14 Completed [facility] 00:00:00 [facility] DTAP 2000-12-03 Completed [facility] 00:00:00 [facility] Hep B, Adol or Pedi 2000-12-03 Completed Unive rsity of Dosage 00:00:00 [facility] DTAP 2000-12-03 Completed [facility] 00:00:00 [facility] Hep B, Adol or Pedi 2000-12-03 Completed Unive rsity of Dosage 00:00:00 [facility] DTAP 2000-12-03 Completed [facility] 00:00:00 [facility] Hep B, Adol or Pedi 2000-12-03 Completed Unive rsity of Dosage 00:00:00 [facility] DTAP 2000-12-03 Completed [facility] 00:00:00 [facility] Hep B, Adol or Pedi 2000-12-03 Completed Unive rsity of Dosage 00:00:00 [facility] DTAP 2000-12-03 Completed [facility] 00:00:00 [facility] Hep B, Adol or Pedi 2000-12-03 Completed Unive rsity of Dosage 00:00:00 [facility] DTAP 2000-12-03 Completed [facility] 00:00:00 [facility] Hep B, Adol or Pedi 2000-12-03 Completed Unive rsity of Dosage 00:00:00 [facility] DTAP 2000-12-03 Completed [facility] 00:00:00 [facility] Hep B, Adol or Pedi 2000-12-03 Completed Unive rsity of Dosage 00:00:00 [facility] DTAP 2000-12-03 Completed [facility] 00:00:00 [facility] Hep B, Adol or Pedi 2000-12-03 Completed [facility] rsity of Dosage 00:00:00 [facility] DTAP 2000-12-03 Completed [facility] 00:00:00 [facility] Hep B, Adol or Pedi 2000-12-03 Completed Unive rsity of Dosage 00:00:00 [facility] DTAP 2000-12-03 Completed [facility] 00:00:00 [facility] Hep B, Adol or Pedi 2000-12-03 Completed Unive rsity of Dosage 00:00:00 [facility] DTAP 2000-12-03 Completed University of 00:00:00 [facility] Hep B, Adol or Pedi 2000-12-03 Completed Unive rsity of Dosage 00:00:00 [facility] DTAP 2000-12-03 Completed University of 00:00:00 [facility] Hep B, Adol or Pedi 2000-12-03 Completed Unive rsity of Dosage 00:00:00 [facility] DTAP 2000-12-03 Completed University of 00:00:00 [facility] Hep B, Adol or Pedi 2000-12-03 Completed Unive rsity of Dosage 00:00:00 [facility] DTAP 2000-12-03 Completed University of 00:00:00 [facility] Hep B, Adol or Pedi 2000-12-03 Completed Unive rsity of Dosage 00:00:00 [facility] DTAP 1999 Completed University of 00:00:00 [facility] IPV 1999 Completed University of 00:00:00 [facility] HIB 3 Dose Schedule 1999 Completed Unive rsity of 00:00:00 [facility] DTAP 1999 Completed University of 00:00:00 [facility] IPV 1999 Completed University of 00:00:00 [facility] HIB 3 Dose Schedule 1999 Completed Unive rsity of 00:00:00 [facility] DTAP 1999 Completed University of 00:00:00 [facility] IPV 1999 Completed University of 00:00:00 [facility] HIB 3 Dose Schedule 1999 Completed Unive rsity of 00:00:00 [facility] DTAP 1999 Completed University of 00:00:00 [facility] IPV 1999 Completed University of 00:00:00 [facility] HIB 3 Dose Schedule 1999 Completed Unive rsity of 00:00:00 [facility] DTAP 1999 Completed University of 00:00:00 [facility] IPV 1999 Completed University of 00:00:00 [facility] HIB 3 Dose Schedule 1999 Completed Unive rsity of 00:00:00 [facility] DTAP 1999 Completed University of 00:00:00 [facility] IPV 1999 Completed University of 00:00:00 [facility] HIB 3 Dose Schedule 1999 Completed Unive rsity of 00:00:00 [facility] DTAP 1999 Completed University of 00:00:00 [facility] IPV 1999 Completed University of 00:00:00 [facility] HIB 3 Dose Schedule 1999 Completed Unive rsity of 00:00:00 [facility] DTAP 1999 Completed University of 00:00:00 [facility] IPV 1999 Completed University of 00:00:00 [facility] HIB 3 Dose Schedule 1999 Completed Unive rsity of 00:00:00 [facility] DTAP 1999 Completed University of 00:00:00 [facility] IPV 1999 Completed University of 00:00:00 [facility] HIB 3 Dose Schedule 1999 Completed Unive rsity of 00:00:00 [facility] DTAP 1999 Completed University of 00:00:00 [facility] IPV 1999 Completed University of 00:00:00 [facility] HIB 3 Dose Schedule 1999 Completed Unive rsity of 00:00:00 [facility] DTAP 1999 Completed University of 00:00:00 [facility] IPV 1999 Completed University of 00:00:00 [facility] HIB 3 Dose Schedule 1999 Completed Unive rsity of 00:00:00 [facility] DTAP 1999 Completed University of 00:00:00 [facility] IPV 1999 Completed University of 00:00:00 [facility] HIB 3 Dose Schedule 1999 Completed Unive rsity of 00:00:00 [facility] DTAP 1999 Completed University of 00:00:00 [facility] IPV 1999 Completed University of 00:00:00 [facility] HIB 3 Dose Schedule 1999 Completed Unive rsity of 00:00:00 [facility] DTAP 1999 Completed University of 00:00:00 [facility] IPV 1999 Completed University of 00:00:00 [facility] HIB 3 Dose Schedule 1999 Completed Unive rsity of 00:00:00 [facility] DTAP 1999 Completed University of 00:00:00 [facility] Hep B, Adol or Pedi 1999 Completed Unive rsity of Dosage 00:00:00 [facility] IPV 1999 Completed University of 00:00:00 [facility] HIB 3 Dose Schedule 1999 Completed Unive rsity of 00:00:00 [facility] DTAP 1999 Completed University of 00:00:00 [facility] Hep B, Adol or Pedi 1999 Completed Unive rsity of Dosage 00:00:00 [facility] IPV 1999 Completed University of 00:00:00 [facility] HIB 3 Dose Schedule 1999 Completed Unive rsity of 00:00:00 [facility] DTAP 1999 Completed University of 00:00:00 [facility] Hep B, Adol or Pedi 1999 Completed Unive rsity of Dosage 00:00:00 [facility] IPV 1999 Completed University of 00:00:00 [facility] HIB 3 Dose Schedule 1999 Completed Unive rsity of 00:00:00 [facility] DTAP 1999 Completed University of 00:00:00 [facility] Hep B, Adol or Pedi 1999 Completed Unive rsity of Dosage 00:00:00 [facility] IPV 1999 Completed University of 00:00:00 [facility] HIB 3 Dose Schedule 1999 Completed Unive rsity of 00:00:00 [facility] DTAP 1999 Completed University of 00:00:00 [facility] Hep B, Adol or Pedi 1999 Completed Unive rsity of Dosage 00:00:00 [facility] IPV 1999 Completed University of 00:00:00 [facility] HIB 3 Dose Schedule 1999 Completed Unive rsity of 00:00:00 [facility] DTAP 1999 Completed University of 00:00:00 [facility] Hep B, Adol or Pedi 1999 Completed Unive rsity of Dosage 00:00:00 [facility] IPV 1999 Completed University of 00:00:00 [facility] HIB 3 Dose Schedule 1999 Completed Unive rsity of 00:00:00 [facility] DTAP 1999 Completed University of 00:00:00 [facility] Hep B, Adol or Pedi 1999 Completed Unive rsity of Dosage 00:00:00 [facility] IPV 1999 Completed University of 00:00:00 [facility] HIB 3 Dose Schedule 1999 Completed Unive rsity of 00:00:00 [facility] DTAP 1999 Completed University of 00:00:00 [facility] Hep B, Adol or Pedi 1999 Completed Unive rsity of Dosage 00:00:00 [facility] IPV 1999 Completed University of 00:00:00 [facility] HIB 3 Dose Schedule 1999 Completed Unive rsity of 00:00:00 [facility] DTAP 1999 Completed University of 00:00:00 [facility] Hep B, Adol or Pedi 1999 Completed Unive rsity of Dosage 00:00:00 [facility] IPV 1999 Completed University of 00:00:00 [facility] HIB 3 Dose Schedule 1999 Completed Unive rsity of 00:00:00 [facility] DTAP 1999 Completed University of 00:00:00 [facility] Hep B, Adol or Pedi 1999 Completed Unive rsity of Dosage 00:00:00 [facility] IPV 1999 Completed University of 00:00:00 [facility] HIB 3 Dose Schedule 1999 Completed Unive rsity of 00:00:00 [facility] DTAP 1999 Completed University of 00:00:00 [facility] Hep B, Adol or Pedi 1999 Completed Unive rsity of Dosage 00:00:00 [facility] IPV 1999 Completed University of 00:00:00 [facility] HIB 3 Dose Schedule 1999 Completed Unive rsity of 00:00:00 [facility] DTAP 1999 Completed University of 00:00:00 [facility] Hep B, Adol or Pedi 1999 Completed Unive rsity of Dosage 00:00:00 [facility] IPV 1999 Completed University of 00:00:00 [facility] HIB 3 Dose Schedule 1999 Completed Unive rsity of 00:00:00 [facility] DTAP 1999 Completed University of 00:00:00 [facility] Hep B, Adol or Pedi 1999 Completed Unive rsity of Dosage 00:00:00 [facility] IPV 1999 Completed University of 00:00:00 [facility] HIB 3 Dose Schedule 1999 Completed Unive rsity of 00:00:00 [facility] DTAP 1999 Completed University of 00:00:00 [facility] Hep B, Adol or Pedi 1999 Completed Unive rsity of Dosage 00:00:00 [facility] IPV 1999 Completed University of 00:00:00 [facility] HIB 3 Dose Schedule 1999 Completed Unive rsity of 00:00:00 [facility] Hep B, Adol or Pedi 1999 Completed Unive rsity of Dosage 00:00:00 [facility] Hep B, Adol or Pedi 1999 Completed Unive rsity of Dosage 00:00:00 [facility] Hep B, Adol or Pedi 1999 Completed Unive rsity of Dosage 00:00:00 [facility] Hep B, Adol or Pedi 1999 Completed Unive rsity of Dosage 00:00:00 [facility] Hep B, Adol or Pedi 1999 Completed Unive rsity of Dosage 00:00:00 [facility] Hep B, Adol or Pedi 1999 Completed Unive rsity of Dosage 00:00:00 [facility] Hep B, Adol or Pedi 1999 Completed Unive rsity of Dosage 00:00:00 [facility] Hep B, Adol or Pedi 1999 Completed Unive rsity of Dosage 00:00:00 [facility] Hep B, Adol or Pedi 1999 Completed Unive rsity of Dosage 00:00:00 [facility] Hep B, Adol or Pedi 1999 Completed Unive rsity of Dosage 00:00:00 [facility] Hep B, Adol or Pedi 1999 Completed Unive rsity of Dosage 00:00:00 [facility] Hep B, Adol or Pedi 1999 Completed Unive rsity of Dosage 00:00:00 [facility] Hep B, Adol or Pedi 1999 Completed Unive rsity of Dosage 00:00:00 [facility] Hep B, Adol or Pedi 1999 Completed Unive rsity of Dosage 00:00:00 [facility] Vital Signs Vital Name Observation Time Observation Value Comments Source Systolic blood 2021-11-17 17:42:00 117 mm[Hg] Univer sity of pressure [facility] Diastolic blood 2021-11-17 17:42:00 84 mm[Hg] Unive rsity of pressure [facility] Heart rate 2021-11-17 17:42:00 76 /min [facility] Body temperature 2021-11-17 17:42:00 37.17 Kat [facility] Respiratory rate 2021-11-17 17:42:00 18 /min [facility] Body height 2021-11-17 17:42:00 160 cm [facility] Body weight 2021-11-17 17:42:00 78.881 kg [facility] BMI 2021-11-17 17:42:00 30.81 kg/m2 [facility] Oxygen saturation in 2021-11-17 17:42:00 100 /min [facility] Arterial blood by [facility] Pulse oximetry Branch Systolic blood 2021-11-07 16:03:00 115 mm[Hg] Univer sity of pressure [facility] Diastolic blood 2021-11-07 16:03:00 75 mm[Hg] Unive rsity of pressure [facility] Heart rate 2021-11-07 16:03:00 70 /min [facility] Body temperature 2021-11-07 16:03:00 37 Kat [facility] Respiratory rate 2021-11-07 16:03:00 16 /min Univ ers[facility] Body height 2021-11-07 16:03:00 160 cm [facility] Body weight 2021-11-07 16:03:00 78.472 kg [facility] BMI 2021-11-07 16:03:00 30.65 kg/m2 [facility] Oxygen saturation in 2021-11-07 16:03:00 97 /min University of Arterial blood by [facility] Pulse oximetry Branch Systolic blood 2021-11-03 17:05:00 116 mm[Hg] Univer sity of pressure [facility] Diastolic blood 2021-11-03 17:05:00 75 mm[Hg] Unive rsity of pressure [facility] Heart rate 2021-11-03 17:05:00 84 /min [facility] Body temperature 2021-11-03 17:05:00 36.72 Kat [facility] Respiratory rate 2021-11-03 17:05:00 18 /min Univ ers[facility] Body weight 2021-11-03 17:05:00 79.379 kg [facility] BMI 2021-11-03 17:05:00 31.00 kg/m2 [facility] Oxygen saturation in 2021-11-03 17:05:00 98 /min [facility] of Arterial blood by [facility] Pulse oximetry Branch Systolic blood 2021-10-06 19:43:00 118 mm[Hg] Univer sity of pressure [facility] Diastolic blood 2021-10-06 19:43:00 72 mm[Hg] Unive rsity of pressure [facility] Heart rate 2021-10-06 19:43:00 78 /min [facility] Body temperature 2021-10-06 19:43:00 36.11 Kat [facility] Respiratory rate 2021-10-06 19:43:00 18 /min [facility] Body height 2021-10-06 19:43:00 160 cm [facility] Body weight 2021-10-06 19:43:00 79.243 kg [facility] BMI 2021-10-06 19:43:00 30.95 kg/m2 [facility] Oxygen saturation in 2021-10-06 19:43:00 95 /min r/a University Arterial blood by [facility] Pulse oximetry Branch BP Diastolic 2021-02-19 00:00:00 82 mm[Hg] [facility] Height 2021-02-19 00:00:00 62 [in_i] [facility] BMI (Body Mass 2021-02-19 00:00:00 29.1 kg/m2 [facility] Medical Index) Group BP Systolic 2021-02-19 00:00:00 131 mm[Hg] [facility] Body Weight 2021-02-19 00:00:00 2544 [oz_av] [facility] BP Diastolic 2020-11-13 00:00:00 79 mm[Hg] [facility] Height 2020-11-13 00:00:00 62 [in_i] [facility] BMI (Body Mass 2020-11-13 00:00:00 29.3 kg/m2 [facility] Medical Index) Group BP Systolic 2020-11-13 00:00:00 125 mm[Hg] [facility] Body Weight 2020-11-13 00:00:00 2566 [oz_av] [facility] BP Diastolic 2020-10-01 00:00:00 70 mm[Hg] [facility] Height 2020-10-01 00:00:00 62 [in_i] [facility] BMI (Body Mass 2020-10-01 00:00:00 28.7 kg/m2 [facility] Medical Index) Group BP Systolic 2020-10-01 00:00:00 108 mm[Hg] [facility] Body Weight 2020-10-01 00:00:00 156.8 [lb_av] [facility] BP Diastolic 2020-09-13 00:00:00 69 mm[Hg] [facility] Height 2020-09-13 00:00:00 62 [in_i] [facility] BMI (Body Mass 2020-09-13 00:00:00 28.7 kg/m2 [facility] Medical Index) Group BP Systolic 2020-09-13 00:00:00 120 mm[Hg] [facility] Body Weight 2020-09-13 00:00:00 157 [lb_av] [facility] BP Diastolic 2020-08-12 00:00:00 78 mm[Hg] [facility] Height 2020-08-12 00:00:00 62 [in_i] [facility] BMI (Body Mass 2020-08-12 00:00:00 27.7 kg/m2 [facility] Medical Index) Group BP Systolic 2020-08-12 00:00:00 114 mm[Hg] [facility] Body Weight 2020-08-12 00:00:00 151.6 [lb_av] [facility] BP Diastolic 2020-08-06 00:00:00 75 mm[Hg] [facility] Height 2020-08-06 00:00:00 62 [in_i] [facility] BMI (Body Mass 2020-08-06 00:00:00 27.8 kg/m2 [facility] Medical Index) Group BP Systolic 2020-08-06 00:00:00 128 mm[Hg] [facility] Body Weight 2020-08-06 00:00:00 152 [lb_av] [facility] BP Diastolic 2020-08-01 00:00:00 79 mm[Hg] [facility] Height 2020-08-01 00:00:00 63 [in_i] [facility] BMI (Body Mass 2020-08-01 00:00:00 26.9 kg/m2 [facility] Index) [facility] BP Systolic 2020-08-01 00:00:00 119 mm[Hg] [facility] Body Weight 2020-08-01 00:00:00 151.8 [lb_av] [facility] Procedures Procedure Date / Time Performing Clinician Source Performed POCT TEST 2021-11-07 16:46:00 Gretchen Mcgrath [facility] CONSENT/REFUSAL FOR 2021-11-03 16:57:44 Doctor Unassigned, [facility] DIAGNOSIS AND TREATMENT [facility] 2020-09-19 00:00:00 [facility] (Surg) Dilation and Curettage [facility] Laparoscopy [facility] Outreach Program Plan of Care Planned Activity Planned Date Details Comments Source Diagnostic Test 2021-02-19 pap, LB + CT/NG/TV [facility] Pending 00:00:00 + reflex HR HPV Group [code = pap, LB + CT/NG/TV + reflex HR HPV] Diagnostic Test 2021-02-19 CMP, serum or [facility] 00:00:00 plasma [code = CMP, Group serum or plasma] Diagnostic Test 2021-02-19 CBC w/ auto diff [facility] Pending 00:00:00 [code = CBC w/ auto Group diff] Diagnostic Test 2021-02-19 TSH, serum or [facility] P[facility] 00:00:00 plasma [code = TSH, Group serum or plasma] Diagnostic Test 2021-02-19 lipid panel, serum [facility] Pending 00:00:00 [code = lipid Group panel, serum] Diagnostic Test 2021-02-19 urinalysis [facility] P[facility] 00:00:00 complete, reflex Group culture [code = urinalysis complete, reflex culture] Diagnostic Test 2021-02-19 RPR (rapid plasma [facility] Pending 00:00:00 reagin), serum Group [code = RPR (rapid plasma reagin), serum] Diagnostic Test 2021-02-19 HIV (1+2) Ab [facility] Pending 00:00:00 screen, serum [code Group = HIV (1+2) Ab screen, serum] Diagnostic Test 2021-02-19 hsv (1+2) igg Ab, [facility] Pending 00:00:00 serum [code = hsv Group (1+2) igg Ab, serum] Diagnostic Test 2021-02-19 hsv (1+2) igm Ab, [facility] Pending 00:00:00 serum [code = hsv Group (1+2) igm Ab, serum] Diagnostic Test 2021-02-19 iron + TIBC + [facility] Pending 00:00:00 ferritin, serum Group [code = iron + TIBC + ferritin, serum] Diagnostic Test 2020-08-01 bacterial vaginosis [facility] Pending 00:00:00 + vaginitis panel, [facility] vaginal [code = Outreach [facility] bacterial vaginosis + vaginitis panel, vaginal] Diagnostic Test 2020-08-01 culture, wound [facility] Pending 00:00:00 [code = culture, [facility] wound] [facility] Instructions [facility] Encounters Start End Encounter Admission Attending Care Care Encounter Source Date/Time Date/Time Type Type Clinicians Facility Department ID 2022-08-25 2022-08-25 [facility] [id number] Univers 13:30:00 13:30:00 LANG morales [facility] 2021-11-26 2021-11-26 Clinic [place] [id number] Univers 00:00:00 00:00:00 Assessment Elizabeth HEALTH [id number] ity of [place] [id number] Parviz as DEWAYNE?BLEA [id number] [address] MEDICAL OFFICE BUILDING 2021-11-26 2021-11-[id number] Univers 00:00:00 00:00:00 Elizabeth HEALTH 350.1.13.10 it y of [place] [id number] Parviz as DEWAYNE?BLEA [phone] [address] MEDICAL OFFICE BUILDING 2021-11-18 2021-11-18 Telephone NurseAlex [address]840.114 [id number] Univers 00:00:00 00:00:00 Db Urgent HEALTH 350.1.13.10 ity of Care [place] [id number] Parviz as DEWAYNE?BLEA [phone] [address] OFFICE [facility] 2021-11-18 2021-11-18 Letter VICTORINA Owen [id number] Univers 00:00:00 00:00:00 (Out) Shaina Anderson PERLA 350.1.13.10 it y of HOSPITAL [id number] Parviz as [phone] [address] 2021-11-17 2021-11-17 Laboratory Only, Ang Db Test [facility] 1.2.8 40.114 [id number] Univers 15:30:00 15:45:00 Only Song, [facility] 350.1.13.10 ity of [place] [id number] Parviz as DEWAYNE?BLEA [phone] [address] 2021-11-17 2021-11-17 [facility] [id number] Univers 15:30:00 15:35:28 [facility] 2021-11-17 2021-11-17 Outpatient R [facility] [id number] Univers 15:30:00 15:30:00 [id number] ity [facility] 2021-11-17 2021-11-17 [facility] 1.2.840.114 [id number] Univers 12:40:00 13:11:07 Care Gretchen HEALTH [id number] it [facility] [id number] Parviz as DEWAYNE?BLEA [phone] [address] OFFICE [facility] 2021-11-17 2021-11-17 [facility] 1.2.840.114 [id number] Univers 00:00:00 00:00:00 Gretchen HEALTH 350.1.13.10 it y of [place] 4.2.7.2.686 Parviz as DEWAYNE?BLEA [phone] [address] OFFICE [facility] 2021-11-09 2021-11-09 Nurse VICTORINA Mancera 1.2.840.114 [id number] Univers 00:00:00 00:00:00 Triage Daysi DUNCAN 350.1.13.10 ity of [facility] 4.2.7.2.686 Parviz as [id number] [facility] 019 [place] 2021-11-08 2021-11-08 Telephone [facility] 1.2.184.103 [id number] Univers 00:00:00 00:00:00 [facility] 350.1.13.10 it y of [place] 4.2.7.2.686 Parviz as DEWAYNE?BLEA [phone] [address] MEDICAL OFFICE [facility] 2021-11-07 2021-11-07 [facility] [id number] Univers 11:00:00 11:31:08 GRETCHEN [facility] 2021-11-07 2021-11-07 Urgent Alcides [facility] [id number] Univers 11:00:00 11:31:08 Care Unknown, [facility] 350.1.13.10 ity of [place] 4.2.7.2.686 Parviz as DEWAYNE?BLEA [phone] [address] MEDICAL OFFICE [facility] 2021-11-07 2021-11-07 Outpatient R [facility] [id number] Univers 11:00:00 11:00:00 [id number] [facility] 2021-11-03 2021-11-03 Emergency X [facility] [id number] Univers 12:06:00 13:00:00 [facility] 2021-11-03 2021-11-03 Emergency [facility] [id number] Univers 12:06:00 13:00:00 Jac R [place] 350.1.13.10 i ty [place]7.2.686 [place] [phone] [place] [id number] [place] 2021-11-03 2021-11-03 Orders Doctor VICTORINA 1.2.840.114 [id number] Univers 00:00:00 00:00:00 Only Unassigned, PERLA 350.1.13.10 ity of [place] [facility] 4.2.7.2.686 Parviz as [phone] [facility] 009 Branch 2021-10-06 2021-10-06 Office Lori [facility] 1.2.840.114 [id number] Univers 14:30:00 15:00:00 Visit Lilli PRICE 350.1.13.10 it[place] of [place].2.686 [place] JUSTINMEMO [phone] [facility] 056 Branch 2021-09-03 2021-09-03 Patient Doctor JULIET 1.2.840.114 [id number] Univers 00:00:00 00:00:00 Secure Msg Unassigned, PERLA 350.1.13.10 ity of [place] [facility] 4.2.7.2.686 Parviz as [phone] [facility] 085 Branch 2021-02-19 2021-02-19 Outpatient Zuniga_F [facility] 2020 [place] 11:30:00 11:30:00 1103 Medical Group 2021-02-19 2021-02-19 [facility] [place] - [id number] M atagor 00:00:00 00:00:00 Discovery maryam Oscar MAXILLOFACIAL PROSTHETICS DENTIST: [address] [facility] 201[facility] [place] [address] , Ph. 2021-02-18 2021-02-18 Outpatient Zuniga_F [facility] MM [id number] [place] 12:59:00 12:59:00 1102 Medical Group 2021-02-05 2021-02-05 Outpatient [facility] [id number] [place] 04:34:00 04:34:00 SSA 0526 [facility] h Program 2021-01-10 2021-01-10 Outpatient Zuniga_F MMG MMG [id number] [place] 03:41:00 03:41:00 0924 [facility] 2020-11-13 2020-11-13 Outpatient Zuniga_F MMG MMG [id number] [place] 05:33:00 05:33:00 0728 [facility] 2020-11-13 2020-11-13 Outpatient Zuniga_F [facility] [id number] [place] 05:33:00 05:33:00 0731 [facility] 2020-11-13 2020-11-13 Markel [facility] [place] - [id number] [facility] 00:00:00 00:00:00 Liliana Young MD: [address] [place] [address] [address] [address] , Ph. 2020-11-12 2020-11-12 Outpatient Zuniga_F [facility] [id number] [place] 05:47:00 05:47:00 0727 [facility] 2020-11-10 2020-11-10 Outpatient Zuniga_F [facility] [id number] [facility] 12:40:00 12:40:00 0725 [facility] 2020-10-18 2020-10-18 [facility] [id number] [place] 01:56:00 01:56:00 SSA 0702 [facility] 2020-10-06 2020-10-06 Outpatient Zuniga_F [facility] [id number] [place] 12:33:00 12:33:00 0620 [facility] 2020-10-06 2020-10-06 Outpatient Zuniga_F [facility] [id number] [place] 12:33:00 12:33:00 0623 [facility] 2020-10-01 2020-10-01 Outpatient Zuniga_F [facility] [id number] [place] 04:18:00 04:18:00 0615 [facility] 2020-10-01 2020-10-01 Ori [facility] [place] - [id number] [place] 00:00:00 00:00:00 Discovery maryam Alonso MD: [address] [place] [address] [place] [phone] , Ph. [phone] 2020-09-30 2020-09-30 Outpatient Zuniga_F [facility] [id number] [place] 07:31:00 07:31:00 0614 [facility] 2020-09-25 2020-09-25 Outpatient Zuniga_F [facility] [id number] [place] 09:21:00 09:21:00 0609 [facility] 2020-09-25 2020-09-25 [place] [id number]- [id number] [place] 09:21:00 09:21:00 0611 [facility] 2020-09-21 2020-09-21 Outpatient G_Pappas [facility] G [id number] [place] 01:30:00 01:30:00 0608 [facility] 2020-09-14 2020-09-14 Outpatient LISTER_MICHAEL BRYANT [facility] 787 [place] 01:02:00 01:02:00 S[facility] 2020-09-13 2020-09-13 Outpatient G_Pappas [facility] [id number] [place] 02:34:00 02:34:00 0528 Medical Group 2020-09-13 2020-09-13 Ori [facility] [place] - [id number] [place] 00:00:00 00:00:00 Discovery maryam Alonso MD: [address] [place] [phone] , Ph. [phone] 2020-08-12 2020-08-12 [id number] [place] 09:46:00 09:46:00 0426 Medical Group 2020-08-12 2020-08-12 Ori [facility] [place] - [id number] [place] 00:00:00 00:00:00 Discovery maryam Alonso MD: [address] [place] [phone] , Ph. [phone] 2020-08-10 2020-08-10 Outpatient HANK BRYANT [facility] 787 [place] 01:03:00 01:03:00 SSA [facility] 2020-08-07 2020-08-07 [facility] 2020 [place] 03:08:00 03:08:00 0422 [facility] 2020-08-06 2020-08-06 Outpatient G_Pappas [facility] 2020 [place] 04:58:00 04:58:00 0420 [facility] 2020-08-06 2020-08-06 Outpatient G_Pappas [facility] 2020 [place] 04:58:00 04:58:00 042 Medical Group 2020-08-06 2020-08-06 Ori [facility] [place] - [id number] [place] 00:00:00 00:00:00 Discovery maryam Alonso MD: [address] [place] [address] [address] [address] , Ph. [phone] 2020-08-01 2020-08-01 Outpatient HANK BRYANT [facility] 787 [place] 05:48:00 05:48:00 SSA [facility] 2020-08-01 2020-08-01 Kimmy [facility] [place] - [id number] [place] 00:00:00 00:00:00 Katerina Peña, [employer]HET[employer] DENTIST: [address] [facility] [address], CHILD PSYCHIATRIST [facility] [phone] Torito , Ph. 2020-07-15 2020-07-15 [facility] [id number] [place] 12:57:00 12:57:00 0329 Medical Group 2020-07-15 2020-07-15 Outpatient CANNON_J [facility] [id number] [place] 12:57:00 12:57:00 0415 Medical Group 2019-10-13 2019-10-13 Outpatient HANK BRYANT [facility] [id number] [place] 03:55:00 03:55:00 SSA 0626 [facility] 2019-10-13 2019-10-13 Outpatient HANK BRYANT [facility] 787 [place] 03:55:00 03:55:00 SSA 1008 [facility] 2019-10-13 2019-10-13 Kimmy [facility] [place] - [id number] [place] 00:00:00 00:00:00 Katerina Chugach da Chuy, [employer] PROSTHET[employer] DENTIST: [address] [facility] - [address] [address] [place] F N, CHILD PSYCHIATRIST [facility] [address] Torito hernández , Ph. 2019-10-12 2019-10-12 Outpatient HANK IAHOP IAHOP 787 [place] 12:29:00 12:29:00 SSA 0625 [facility] 2019-09-14 2019-09-14 Outpatient RENETTA IAHOP [facility]OP 787 [place] 04:15:00 04:15:00 0528 [facility] 2019-09-14 2019-09-14 Outpatient RENETTA IAHOP IAHOP 787 [place] 04:15:00 04:15:00 0601 [facility] 2019-03-01 2019-03-01 Outpatient CANNON_J [facility] [id number] [place] 12:16:00 12:16:00 0302 [facility] 2019-03-01 2019-03-01 Outpatient CANNON_J [facility] [id number] [place] 12:16:00 12:16:00 0322 [facility] 2019-02-23 2019-02-23 Outpatient JAMES_BRANDY IAHOP IAHOP 787 [place] 02:35:00 02:35:00 0107 [facility] Results Test Description Test Time Test Comments Results Result Comments Source POCT TEST 2021-11-07 16:49:00 Test Item Value Reference Range Interpretation Comme nts POCT PREG (test code = 1605) Negative On board controls acceptable with C Line (test code = 3574) Yes POCT PREG LOT # (test code = 3575) POCT PREG TEST DATE (test code = 3576) Lab Interpretation (test code = 74880-9) Normal [facility] - Blood 2020-10-29 11:55:00 Test Item Value Reference Range Interpretation Comments hemoglobin (test code = hemoglobin) 9.5 g/dL 10.5-15.7 L hematocrit (test code = hematocrit) 30.3 % 34.0-50.0 L [facility] Cross[facility] panel - [id number] 04:28:00 Test Item Value Reference Range Interpretation Comments Blood type and Crossmatch unit number: panel - Blood (test code [id number] = 52149-3) [facility] SystemCBC W Auto Differential panel - [id number] 01:52:00 Test Item Value Reference Range Interpretation Comments white blood count (test code = 9.4 K/uL 4.0-11.5 white blood count) red blood count (test code = red 3.54 M/uL 3.80-5.20 L blood count) hemoglobin (test code = 9.4 g/dL 10.5-15.7 L hemoglobin) hematocrit (test code = 30.0 % 34.0-50.0 L hematocrit) MCV [Entitic volume] (test code = 84.7 fL 86-100 L 15044-4) mean corpuscular hemoglobin (test 26.6 pg 26.2-33.4 code = mean corpuscular hemoglobin) mean corpuscular HGB conc (test 31.3 g/dL 30-34 code = mean corpuscular HGB conc) red cell distribution width (test 14.6 % 12.0-15.5 code = red cell distribution width) platelet count (test code = 180 K/uL 165-450 platelet count) Platelets reticulated/100 10.2 % 0-8 H platelets in Blood by Automated count (test code = 51091-5) mean platelet volume (test code = 12.9 fL 9.4-12.6 H mean platelet volume) Segmented neutrophils/100 56.8 % 44.4-80.1 leukocytes in Blood (test code = 34869-6) Immature granulocytes [#/volume] 0.0 K/uL 0.0-0.03 in Blood (test code = 88553-2) lymphocyte% (test code = 35.0 % 10.0-50.0 lymphocyte%) mono % (test code = mono %) 5.6 % 3.6-12.0 eos % (test code = eos %) 2.1 % 0.0-5.4 Basophils/100 leukocytes in 0.1 % 0.1-1.2 Unspecified specimen (test code = 82885-0) Band form neutrophils [#/volume] 5.34 K/uL 1.56-6.13 in Blood (test code = 43852-6) Lymphocytes [#/volume] in 3.3 K/uL 1.18-3.74 Unspecified specimen by Automated count (test code = 84742-8) mono # (test code = mono #) 0.53 K/uL 0.24-0.86 eos # (test code = eos #) 0.20 K/uL 0.04-0.36 basophil # (test code = basophil 0.01 K/uL 0.01-0.08 #) NRBC% (test code = NRBC%) 0 /100 WBC 0-0.2 NRBC# (test code = NRBC#) 0 K/uL [facility] metabolic 2000 panel - Serum or [id number] 01:52:00 Test Item Value Reference Range Interpretation Comments Glucose [Mass/volume] in Serum or 101 mg/dL 74-106 Plasma (test code = 2345-7) Urea nitrogen [Mass/volume] in 15 mg/dL 6-20 Serum or Plasma (test code = 3094-0) osmolality calculated,serum (test 280 mOsm/kg 280-300 code = osmolality calculated,serum) creatinine (test code = 0.8 mg/dL 0.50-0.90 creatinine) glomerular filtration rate (test >60.00 code = glomerular filtration rate) Urea nitrogen/Creatinine [Mass 18.8 12-20 Ratio] in Serum or Plasma (test code = 3097-3) sodium level (test code = sodium 140 mmol/L 135-145 level) potassium level (test code = 3.9 mmol/L 3.5-5.2 potassium level) chloride level (test code = 110 mmol/L 98-108 H chloride level) CO2 (test code = CO2) 19 mmol/L 21-32 L anion gap (test code = anion gap) 14.9 mEq/L 12-20 calcium level (test code = 8.4 mg/dL 8.6-10.0 L calcium level) [place] [id number] 15:39:00[facility] 2020-[facility]28 15:39:00Results[place] [id number] 15:39:00Results [place] [id number] 15:39:00[facility] 15:39:00Results[facility] SystemBlood type and Crossmatch panel - [id number] 15:39:00 Test Item Value Reference Range Interpretation Comments Blood type and Crossmatch unit number: panel - Blood (test code [id number] = 71056-3) [place] [id number] 15:39:00[facility] 2020-10-28 15:39:00Results[place] [id number] 15:39:00Results [place] [id number] 15:39:00[facility] 2020-10-28 15:39:00Results[place] [id number] 15:39:00Results [place] [id number] 15:39:00[facility] 2020-10-28 15:39:00Results[place] [id number] 15:39:00Results [place] [id number] 15:39:00ResultsG[facility] System Hemoglobin and Hematocrit panel - [id number] 11:06:00 Test Item Value Reference Range Interpretation Comments hemoglobin (test code = hemoglobin) 8.9 g/dL 10.5-15.7 L hematocrit (test code = hematocrit) 28.0 % 34.0-50.0 L [facility] SystemBlood type and Indirect antibody screen panel - Blood 2020-10-28 11:06:00 Test Item Value Reference Range Interpretation Comments Rh [Type] in Blood (test code = 4+ 74027-6) ABO and Rh group panel - Blood A positive (test code = 58861-2) [facility] System[facility] type and Indirect antibody screen panel - Blood 2020-10-28 10:40:00 Test Item Value Reference Range Interpretation Comments Rh [Type] in Blood (test code = 4+ 14536-6) ABO and Rh group panel - Blood A positive (test code = 17319-0) [facility] Systemvon Willebrand factor (vWf) Ag [Units/volume] in Platelet poor [id number] 00:00:00 Test Item Value Reference Range Interpretation Comments von Willebrand factor (vWf) Ag 149 % 50-200 [Units/volume] in Platelet poor plasma (test code = 92040-4) [facility] SystemBacteria identified in Abscess by Aerobe culture 2020-09-19 10:28:00 Test Item Value Reference Range Interpretation Comments results (test code = results) Bacteria identified in no growth at day 3 Abscess by Aerobe culture (test code = 595-9) [facility] SystemCB W Auto Differential panel - [id number] 02:29:00 Test Item Value Reference Range Interpretation Comments white blood count (test code = 7.8 K/uL 4.0-11.5 white blood count) red blood count (test code = red 4.47 M/uL 3.80-5.20 blood count) hemoglobin (test code = 11.1 g/dL 10.5-15.7 hemoglobin) hematocrit (test code = 37.1 % 34.0-50.0 hematocrit) MCV [Entitic volume] (test code = 83.0 fL 86-100 L 73687-5) mean corpuscular hemoglobin (test 24.8 pg 26.2-33.4 L code = mean corpuscular hemoglobin) mean corpuscular HGB conc (test 29.9 g/dL 30-34 L code = mean corpuscular HGB conc) red cell distribution width (test 14.0 % 12.0-15.5 code = red cell distribution width) platelet count (test code = 225 K/uL 165-450 platelet count) mean platelet volume (test code = 12.8 fL 9.4-12.6 H mean platelet volume) Segmented neutrophils/100 58.9 % 44.4-80.1 leukocytes in Blood (test code = 37599-3) Immature granulocytes [#/volume] 0.0 K/uL 0.0-0.03 in Blood (test code = 82379-4) lymphocyte% (test code = 34.3 % 10.0-50.0 lymphocyte%) mono % (test code = mono %) 5.6 % 3.6-12.0 eos % (test code = eos %) 0.8 % 0.0-5.4 Basophils/100 leukocytes in 0.3 % 0.1-1.2 Unspecified specimen (test code = 64001-2) Band form neutrophils [#/volume] 4.60 K/uL 1.56-6.13 in Blood (test code = 23816-6) Lymphocytes [#/volume] in 2.7 K/uL 1.18-3.74 Unspecified specimen by Automated count (test code = 67997-5) mono # (test code = mono #) 0.44 K/uL 0.24-0.86 eos # (test code = eos #) 0.06 K/uL 0.04-0.36 basophil # (test code = basophil 0.02 K/uL 0.01-0.08 #) NRBC% (test code = NRBC%) 0 /100 WBC 0-0.2 NRBC# (test code = NRBC#) 0 K/uL [facility] ([facility]OVID-19) RNA [Presence] in Respiratory specimen by TRINIDAD with probe [id number] 02:12:9554769-4RkxihbnkxGulfport Behavioral Health Systempregnancy test, [id number] 14:15:26 Test Item Value Reference Range Interpretation Comments Test (test code = negative Test) [facility] Systempregnancy test, [id number] 14:15:26 Test Item Value Reference Range Interpretation Comments Test (test code = negative Test) [facility] SystemMicroorganism or agent identified in Unspecified specimen 2020-08-04 00:00:00 Test Item Value Reference Range Interpretation Comments Microorganism or agent final report identified in Unspecified specimen (test code = 28351-9) Bacteria identified in routine aleksandar Unspecified specimen by Culture (test code = 6463-4) [facility] [id number] 00:00:00 Test Item Value Reference Range Interpretation Comments request problem (test code = request tnp problem) [facility]kintest code [id number] 00:00:00 Test Item Value Reference Range Interpretation Comments test code change (test code = test comment code change) [facility]kinChoriogonadotropin.intact+Beta subunit [Units/volume] in Serum or [id number] 00:00:00 Test Item Value Reference Range Interpretation Comments Choriogonadotropin.intact+Beta subunit <1 [Units/volume] in Serum or Plasma (test code = 99329-1) [facility]
[2021-11-28] MEDS ORDERED: NA CHLORIDE 0.9% 1,000 ML ONE (22:04)
[2021-11-28 22:07] LABS: Absolute Lymphocytes (CBC) 2.1 K/uL (0.7-4.9); Hematocrit 32.8 % (36.0-45.0); Lymphocytes % 27.7 % (15.3-44.8); MPV 9.7 fL (7.6-11.3); RBC Red Blood Cell Count 4.31 M/uL (3.86-4.86)
[2021-11-28 22:14] LABS: Urine Blood Negative (Negative); Urine Glucose Negative (Negative); Urine Protein Negative (Negative); Urine pH 8.5 (5.0-7.0)
[2021-11-28 23:26] LABS: Potassium 3.5 mmol/L (3.5-5.1)
[2021-11-29] MEDS ORDERED: MORPHINE 2 MG/ML SYR ONE (00:31)
[2021-11-29] MEDS ORDERED: ONDANSETRON 4 MG/2 ML VIAL ONE (00:31)
[2021-11-29] MEDS ORDERED: CLINDAMYCIN 900MG/D5W 900 MG/50 ML IVPB IV ONE (00:56)
[2021-11-29] MEDS ORDERED: dexAMETHasone 10 MG/ML VIAL ONE (00:56)
--- NOTE | 2021-11-29 01:31 | ER ---
Nurse's Notes [facility] Name: Silvia Hall Age: 21 yrs Sex: Female : 2000 Arrival Date: 11/28/2021 Time: 21:25 Bed 18 Private MD: Diagnosis: Disorder of teeth and supporting structures, unspecified;Dysphagia Presentation: 11/28 21:37 Chief complaint: Patient states: "I have been having allergic reactions off and on, I tw5 dont know from what. But this time my tongue has swollen up and I have this huge bump under my tongue. I cannot eat or drink anything without being in a pain. It feels like I just poured fire ants in my mouth.". Coronavirus screen: Vaccine status: Patient reports being unvaccinated. Ebola Screen: Patient negative for fever greater than or equal to 101.5 degrees Fahrenheit, and additional compatible Ebola Virus Disease symptoms Patient denies exposure to infectious person. Patient denies travel to an Ebola-affected area in the 21 days before illness onset. Initial Sepsis Screen: Does the patient meet any 2 criteria? HR > 90 bpm. Does the patient have a suspected source of infection? No. Patient's initial sepsis screen is negative. Risk Assessment: Do you want to hurt yourself or someone else? Patient reports no desire to harm self or others. Onset of symptoms is unknown. 21:37 Method Of Arrival: Ambulatory tw5 21:37 Acuity: ANUPAM 3 tw5 Triage Assessment: 21:39 General: Appears uncomfortable, Behavior is calm, cooperative, appropriate for age. tw5 Pain: Pain currently is 10 out of 10 on a pain scale. EENT: patient handling secretions at this time. 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 - Social history:: Smoking status: Patient denies any tobacco usage or history of. Screenin:42 Abuse screen: Denies threats or abuse. Denies injuries from another. Nutritional tw5 screening: Difficulty chewing/swallowing? Yes. Tuberculosis screening: No symptoms or risk factors identified. Fall Risk None identified. Assessment: 22:00 Reassessment: see triage assessment. sm5 23:00 Reassessment: No changes from previously documented assessment. Patient and/or family 5 updated on plan of care and expected duration. Pain level reassessed. 11/29 01:43 Reassessment: No changes from previously documented assessment. Patient is alert, sm5 oriented x 3, equal unlabored respirations, skin warm/dry/pink. Vital Signs: 11/28 21:37 BP 123 / 78; Pulse 92; Resp 18; Temp 98.1; Pulse Ox 100% ; Weight 78.47 kg; Height 5 tw5 ft. 3 in. (160.02 cm); Pain 10/; 11/29 01:43 BP 117 / 71; Pulse 75; Resp 18; Pulse Ox 100% on R/A; sm5 11/28 21:37 Body Mass Index 30.65 (78.47 kg, 160.02 cm) tw5 ED Course: 11/28 21:25 Patient arrived in ED. ja2 21:28 Nader Baker PA is PHCP. cp 21:28 Jayesh Botello DO is Attending Physician. cp 21:35 Marietta Rosa, MARGARITA is Primary Nurse. sm5 21:39 Triage completed. tw5 21:39 Arm band placed on right wrist. tw5 11/29 00:16 CT Soft Tissue Neck W/contr In Process Unspecified. EDMS 01:28 Jaclyn Espinosa MD is Referral Physician. cp 01:29 Referral Physician role handed off by Jaclyn Espinosa MD cp 01:29 Bright Toussaint DDS is Referral Physician. cp 01:30 Jaclyn Espinosa MD is Referral Physician. cp 01:43 Patient has correct armband on for positive identification. Bed in low position. Call 5 light in reach. Side rails up X2. 01:43 No provider procedures requiring assistance completed. IV discontinued, intact, sm5 bleeding controlled, No redness/swelling at site. Pressure dressing applied. Administered Medications: 11/28 22:02 Drug: NS 0.9% 1000 ml Route: IV; Rate: 1 bolus; Site: left antecubital; sm5 23:00 Follow up: IV Status: Infusion continued; IV Intake: 1000ml 5 11/29 00:26 Drug: morphine 2 mg Route: IVP; Infused Over: 4 mins; Site: left antecubital; 5 01:44 Follow up: Response: No adverse reaction; Pain is decreased sm5 00:26 Drug: Zofran (Ondansetron) 4 mg Route: IVP; Site: left antecubital; sm5 01:44 Follow up: Response: No adverse reaction sm5 00:50 Drug: Decadron - Dexamethasone 10 mg Route: IVP; Site: left antecubital; sm5 01:44 Follow up: Response: No adverse reaction sm5 00:50 Drug: Clindamycin 900 mg Route: IVPB; Infused Over: 30 mins; Site: left antecubital; sm5 01:44 Follow up: Response: No adverse reaction; IV Status: Completed infusion; IV Intake: 31htot5 Medication: 01:43 VIS not applicable for this client. sm5 Intake: 11/28 23:00 IV: 1000ml; Total: 1000ml. sm5 11/29 01:44 IV: 50ml; Total: 1050ml. 5 Outcome: 01:30 Discharge ordered by MD. rd 01:44 Discharged to home ambulatory. 5 01:44 Condition: stable 01:44 Discharge instructions given to patient, Instructed on discharge instructions, follow up and referral plans. medication usage, Demonstrated understanding of instructions, follow-up care, medications, Prescriptions given X 2. 01:45 Patient left the ED. 5 Signatures: Dispatcher [employer] EDMS Nader Baker PA PA cp Alexander, Jessica ja2 Wood, Tiffany 5 Marietta Rosa, RN RN 5
--- NOTE | 2021-11-29 01:31 | EDPHYS ---
Physician Documentation [facility] Name: Silvia Hall Age: 21 yrs Sex: Female : 2000 Arrival Date: 11/28/2021 Time: 21:25 Bed 18 Private MD: ED Physician Jayesh Botello HPI: 11/28 21:50 This 21 yrs old Black Female presents to ER via Ambulatory with complaints of cp Difficulty Swallowing, Swelling Of Tongue. 21:50 The patient presents with sore throat, dysphagia, of both solids and liquids, tongue cp swelling. 21:50 The patient describes throat pain as constant. cp 21:50 Onset: The symptoms/episode began/occurred today. Severity of symptoms: in the cp emergency department the symptoms are unchanged. Associated signs and symptoms: Pertinent positives: dysphagia, Sore throat Pertinent negatives cough, diarrhea, earache, fever, flu-like symptoms, headache, vomiting. 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 - Social history:: Smoking status: Patient denies any tobacco usage or history of. ROS: 22:00 Constitutional: Negative for body aches, chills, fever. cp 22:00 Eyes: Negative for injury, pain, redness, and discharge. cp 22:00 ENT: Positive for difficulty swallowing, sore throat, tongue swelling, Negative for drainage from ear(s), ear pain, sinus congestion, sinus pain, difficulty handling secretions. 22:00 Cardiovascular: Negative for chest pain. 22:00 Respiratory: Negative for cough, shortness of breath, wheezing. 22:00 Abdomen/GI: Negative for vomiting, diarrhea, constipation. 22:00 Skin: Negative for rash. 22:00 Neuro: Negative for altered mental status, dizziness, headache, weakness. 22:00 All other systems are negative. Exam: 22:05 Constitutional: The patient appears in no acute distress, alert, awake, non-toxic, well cp developed, well nourished, uncomfortable. 22:05 Head/face: Noted is swelling, that is mild, of the right lower jaw, tenderness, that cp is moderate, of the right lower jaw. 22:05 Eyes: Periorbital structures: appear normal, Conjunctiva: normal, no exudate, no injection, Sclera: no appreciated abnormality, Lids and lashes: appear normal, bilaterally. 22:05 ENT: External ear(s): are unremarkable, Ear canal(s): are normal, clear, TM's: dullness, bilaterally, Nose: is normal, Mouth: Lips: moist, Oral mucosa: pink and intact, moist, Gums: normal with healthy appearance, Tongue: is moist, right side sublingual tenderness, mild swelling, abscess, is not appreciated, Posterior pharynx: Airway: no evidence of obstruction, patent, Tonsils: no enlargement, no exudate, Uvula: midline, swelling, is not appreciated, erythema, that is mild, exudate, is not appreciated, Dental exam: dental caries, that is moderate, pain, that is mild, specifically in the lower right first molar (#30), Voice: is normal. 22:05 Neck: ROM/movement: is normal, is supple, without pain, no range of motions limitations, no meningismus. 22:05 Chest/axilla: Inspection: normal. 22:05 Cardiovascular: Rate: normal, Rhythm: regular. cp 22:05 Respiratory: the patient does not display signs of respiratory distress, Respirations: cp normal, no use of accessory muscles, no retractions, labored breathing, is not present, Breath sounds: are clear throughout, no decreased breath sounds, no stridor, no wheezing. 22:05 Abdomen/GI: Exam negative for discomfort, distension, guarding, Inspection: abdomen appears normal. 22:05 Back: pain, is absent, ROM is normal. 22:05 Skin: cellulitis, is not appreciated, no rash present. 22:05 Neuro: Orientation: to person, place \T\ time. Mentation: is normal. Vital Signs: 21:37 BP 123 / 78; Pulse 92; Resp 18; Temp 98.1; Pulse Ox 100% ; Weight 78.47 kg; Height 5 tw5 ft. 3 in. (160.02 cm); Pain 01/26; 11/29 01:43 BP 117 / 71; Pulse 75; Resp 18; Pulse Ox 100% on R/A; sm5 11/28 21:37 Body Mass Index 30.65 (78.47 kg, 160.02 cm) tw5 MDM: 11/28 21:34 Patient medically screened. 11/29 01:30 Data reviewed: vital signs, nurses notes, lab test result(s), radiologic studies, CT cp scan, I have discussed the patient's presentation/case with the attending Emergency Department Physician; and as a result, I will discharge patient. 01:30 Differential diagnosis: apthous ulcer, epiglottitis, group A strep tonsillitis, cp mary lou's angina, lymphoma, peritonsillar abscess pharyngitis, retropharyngeal abcess tonsillitis, upper respiratory infection, uvulitis, dental abscess. Counseling: I had a detailed discussion with the patient and/or guardian regarding: the historical points, exam findings, and any diagnostic results supporting the discharge/admit diagnosis, lab results, radiology results, the need for outpatient follow up, an ENT specialist, maxillary/facial, to return to the emergency department if symptoms worsen or persist or if there are any questions or concerns that arise at home. Response to treatment: the patient's symptoms have mildly improved after treatment, and as a result, I will discharge patient. 11/28 21:45 Order name: CBC with Diff; Complete Time: 23:09 cp 11/28 23:09 Interpretation: Normal except: HGB 10.6; HCT 32.8; MCV 76.0; MCH 24.7; RDW 16.6. 11/28 21:45 Order name: BMP; Complete Time: 00:35 cp 11/29 00:36 Interpretation: Reviewed. 11/28 21:45 Order name: Barry Screen Profile; Complete Time: 00:35 cp 11/28 21:45 Order name: Strep 11/28 22:15 Order name: Urine Dipstick-Ancillary; Complete Time: 23:09 EDMS 11/28 22:15 Order name: Urine --Ancillary (enter results); Complete Time: 23:09 oe 11/28 21:45 Order name: IV; Complete Time: 22:02 cp 11/28 21:45 Order name: CT Soft Tissue Neck W/contr cp 11/28 21:45 Order name: Urine Dipstick-Ancillary (obtain specimen); Complete Time: 22:16 cp 11/28 21:45 Order name: Urine Test (obtain specimen); Complete Time: 22:16 cp Administered Medications: 11/28 22:02 Drug: NS 0.9% 1000 ml Route: IV; Rate: 1 bolus; Site: left antecubital; sm5 23:00 Follow up: IV Status: Infusion continued; IV Intake: 1000ml 5 11/29 00:26 Drug: morphine 2 mg Route: IVP; Infused Over: 4 mins; Site: left antecubital; sm5 01:44 Follow up: Response: No adverse reaction; Pain is decreased 5 00:26 Drug: Zofran (Ondansetron) 4 mg Route: IVP; Site: left antecubital; sm5 01:44 Follow up: Response: No adverse reaction 5 00:50 Drug: Decadron - Dexamethasone 10 mg Route: IVP; Site: left antecubital; sm5 :44 Follow up: Response: No adverse reaction sm5 00:50 Drug: Clindamycin 900 mg Route: IVPB; Infused Over: 30 mins; Site: left antecubital; sm5 :44 Follow up: Response: No adverse reaction; IV Status: Completed infusion; IV Intake: [id number] Disposition: 06:15 Co-signature as Attending Physician, Jayesh GLOVER was immediately available on-site ms3 in the Emergency Department for consultation in the care of the patient.. Disposition Summary: 11/29/21 01:30 Discharge Ordered Location: Home cp Problem: new cp Symptoms: have improved cp Condition: Stable cp Diagnosis - Disorder of teeth and supporting structures, unspecified cp - Dysphagia cp Followup: cp - With: Jaclyn Espinosa MD - When: 2 - 3 days - Reason: Recheck today's complaints Followup: cp - With: Bright Toussaint DDS - When: 2 - 3 days - Reason: dental pain Followup: cp - With: Jaclyn Espinosa MD - When: 2 - 3 days - Reason: dysphagia Discharge Instructions: - Discharge Summary Sheet cp - Dental Pain cp - Dysphagia cp Forms: - Medication Reconciliation Form cp - Thank You Letter cp - Antibiotic Education cp - Prescription Opioid Use cp Prescriptions: - Clindamycin HCl 300 mg Oral Capsule - take 1 capsule by ORAL route every 6 hours for 10 days; 40 capsule; Refills: 0, cp Product Selection Permitted - Diclofenac Sodium 75 mg Oral tablet,delayed release (DR/EC) - take 1 tablet by ORAL route 2 times per day; 20 tablet; Refills: 0, Product cp Selection Permitted Signatures: Dispatcher [employer] EDMS Nader Baker PA PA cp Jayesh Botello DO DO ms3 Jeanine Lorenzofany tw5 Marietta Rosa RN RN sm5 Corrections: (The following items were deleted from the chart) 21:56 08 22:05 ENT: External ear(s): are unremarkable, Ear canal(s): are normal, clear, cp TM's: dullness, bilaterally, Nose: is normal, Mouth: Lips: moist, Oral mucosa: pink and intact, moist, Posterior pharynx: Airway: no evidence of obstruction, patent, Tonsils: no enlargement, no exudate, erythema, that is mild, Dental exam: dental caries, that is moderate, pain, that is mild, specifically in the lower right first molar (#30), Voice: is normal, cp 11/29 22:02 01:30 Differential diagnosis: apthous ulcer, epiglottitis, group A strep tonsillitis, cp mary lou's angina, lymphoma, peritonsillar abscess pharyngitis, retropharyngeal abcess tonsillitis, upper respiratory infection, uvulitis, cp
[2021-11-29 02:17] VITALS: TEMP 98.1; O2SAT 100
[2021-11-29 02:20] VITALS: BP 117/71
--- NOTE | 2021-11-29 22:00 | RAD REPORT ---
EXAM DESCRIPTION: CT - Soft Tissue Neck W/Contr - 11/29/2021 6:53 am CLINICAL HISTORY: 21 years Female dysphagia COMPARISON: None TECHNIQUE: Images were obtained in axial, sagittal, and coronal planes. Intravenous contrast was adm inistered. This exam was performed according to our departmental dose-optimization program which includes use of Automated Exposure Control, adjustment of the mA and/or kV according to patient size and/or use of iterative reconstruction technique. FINDINGS: Parapharyngeal soft tissues within normal limits. No enhancing fluid collections to indica te peritonsillar abscess. Mild obscuration left vallecula. Obscuration left piriform sinus. True and false cords within normal limits. Symmetric enhancement thyroid gland. Epiglottis within normal limit s. Patent airway. Bilateral subsegmental and retromandibular adenopathy. Adenopathy posterior triangle r egions bilaterally. Prevertebral soft tissues appear normal. No abnormality orbits bilaterally. Unremarkable paranasal sinuses. No air-fluid levels seen. Symmetric aeration mastoid air cells bilaterally. No abnormality visualized intracranial structures. Metallic jewelry left nares. No abnormality parotid or submandibular glands bilaterally. Patent carotid arteries and jugular veins bilaterally. No filling defects noted. No abnormality upper lungs bilaterally. Reversal normal cervical lordosis indicating muscle spasm. No evidence for dental abscess. Dental caries left upper second molar. Unerupted upper and lower thir d molars bilaterally. IMPRESSION: Obscuration left piriform sinus and vallecula. Direct visualization suggested to further exclude soft tissue abnormality in this region. Moderate cervical adenopathy. No evidence for perito nsillar abscess. Muscle spasm. Electronically signed by: Nita Decker MD 11/29/2021 1:11 AM CDT Due to temporary technical issues with the PACS/Fluency reporting system, reports are being signed by the in house radiologists without review as a courtesy to insure prompt reporting. The interpreting radiologist is fully responsible for the content of the report.
== END 2021-11-29 01:45 | disposition home or self-care (01) ==
LOC: ER 21:22
DX: R13.10 Dysphagia, unspecified (principal); K08.9 Disorder of teeth and supporting structures, unspecified
CPT/HCPCS: 96365; 96361; 85025; 80048; 36415; 86308; 81025; 81003; 70491; 96375; 99283; Q9967; J1100; J2270; J7030; J2405